=== PATIENT | male | born 1950 | race African-American/Black ===

== ENCOUNTER 2020-04-11 10:12 | Inpatient (IN) ==
--- NOTE | 2020-04-11 10:48 | Emergency Department Note ---
History of Present Illness General Chief complaint: Respiratory Problems Time Seen by Provider: 04/11/20 10:24 Source: patient History of Present Illness Provider complaint: Shortness of breath Onset (ago): week(s) Location: chest Severity: severe Pain Consistency: + constant Quality: + other (Short of breath) Relieved By: + other (Oxygen) Associated symptoms: + fever/chills, + malaise and + shortness of breath; no chest pain, no cough and no nausea/vomiting This is a 70-year-old male with a history of COPD brought in from a local intermediate for evaluation of shortness of breath. The patient was diagnosed with COVID-19 a week ago. He does state that he has had loss of taste and smell as well as intermittent fevers. He denies significant cough. He states he has been short of breath for several weeks but today the intermediate noticed that his O2 saturation was in the 70s on room air. He denies any chest pain or upper back pain. He has had swelling to his legs which she states is chronic and has had this for months. He denies any pain to his legs. He denies abdominal pain, vomiting or diarrhea. His shortness of breath is improved with oxygen. He states he is normally not on oxygen although he uses CPAP at night. He uses inhalers for COPD but has not had any nebulizers. He denies any history of PE or DVT. Home Medications Medication Instructions Recorded Confirmed Type acetaminophen-codeine 2 tab PO TID PRN 04/11/20 04/11/20 History amlodipine 10 mg PO QAM 04/11/20 04/11/20 History atenolol 100 mg PO QAM 04/11/20 04/11/20 History bumetanide 1 mg PO QAM 04/11/20 04/11/20 History cholecalciferol (vitamin D3) 25 mcg PO DAILY 04/11/20 04/11/20 History [Vitamin D3] ciclesonide [Alvesco] 1 puff INHALATION BID 04/11/20 04/11/20 History hydralazine 25 mg PO BID 04/11/20 04/11/20 History irbesartan 300 mg PO QAM 04/11/20 04/11/20 History levalbuterol tartrate [Xopenex HFA] 2 inh INHALATION QID PRN 04/11/20 04/11/20 History meloxicam 7.5 mg PO DAILY PRN 04/11/20 04/11/20 History omeprazole 20 mg PO QAM 04/11/20 04/11/20 History rosuvastatin 20 mg PO HS 04/11/20 04/11/20 History tamsulosin 0.8 mg PO HS 04/11/20 04/11/20 History zinc sulfate 220 mg PO BID 04/11/20 04/11/20 History Allergies Allergy/AdvReac Type Severity Reaction Status Date / Time DARVOCET Allergy Unknown Unknown. Uncoded 04/11/20 11:14 Past Med/Surg History Medical History (Updated 04/11/20 @ 18:34 by Dinesh Laurent MD) Allergic rhinitis Benign essential hypertension BPH (benign prostatic hyperplasia) Cervical disc disorder with radiculopathy CKD (chronic kidney disease), stage III Constipation COPD (chronic obstructive pulmonary disease) Eczema Gastritis Hemorrhoids Hepatitis C Treated with Harvoni Hiatal hernia Liver cirrhosis Lower extremity edema Neuropathy Obstructive sleep apnea Palpitations Peptic ulcer disease Polyosteoarthritis Social History (Updated 04/11/20 @ 10:49 by Brennen Romero MD) Smoking Status: Former smoker Current Living Situation: Other Feels Safe at Home: Yes Review of Systems See HPI for pertinent positives & negatives. and A total of 10 systems reviewed and were otherwise negative Physical Exam Vital Signs Vital Signs - 24 hr 04/11/20 10:27 04/11/20 10:30 04/11/20 10:31 Temperature Source Pulse Rate 71 69 70 Pulse Rate [Left Finger] Pulse Rate from SpO2 Sensor 71 70 70 Respiratory Rate 22 21 23 Respiratory Effort / Characteristics Respiratory Depth Blood Pressure 106/61 121/62 Blood Pressure [Right Arm] Blood Pressure Mean 82 68 Blood Pressure Mean [Right Arm] Blood Pressure Position Pulse Oximetry Oxygen Delivery Method Oxygen Flow Rate Fraction of Inspired Oxygen Sepsis Recent Fever Within 48 Hours Sepsis New/Unexplained Change in Mental Status Sepsis Action Taken by Nursing Oxygen Flow Rate - Titration Pulse Oximetry Post Tiitration 04/11/20 10:41 04/11/20 10:42 04/11/20 10:55 Temperature Source Oral Pulse Rate 66 Pulse Rate [Left Finger] 64 Pulse Rate from SpO2 Sensor Respiratory Rate 18 18 Respiratory Effort / Characteristics Non-Labored Non-Labored Spontaneous Respiratory Depth Normal Blood Pressure 121/62 Blood Pressure [Right Arm] Blood Pressure Mean 81 Blood Pressure Mean [Right Arm] Blood Pressure Position Sitting Pulse Oximetry 88 L 96 Oxygen Delivery Method Nasal Cannula Nasal Cannula High Flow Nasal Cannula Oxygen Flow Rate 4 0 25 Fraction of Inspired Oxygen 50 Sepsis Recent Fever Within 48 Hours No Sepsis New/Unexplained Change in Mental Status No Sepsis Action Taken by Nursing No Action Required Oxygen Flow Rate - Titration 4 Pulse Oximetry Post Tiitration 96 04/11/20 11:00 04/11/20 11:01 04/11/20 11:30 Temperature Source Pulse Rate 66 65 66 Pulse Rate [Left Finger] Pulse Rate from SpO2 Sensor 66 65 66 Respiratory Rate 21 18 18 Respiratory Effort / Characteristics Respiratory Depth Blood Pressure 124/62 Blood Pressure [Right Arm] Blood Pressure Mean 70 Blood Pressure Mean [Right Arm] Blood Pressure Position Pulse Oximetry 97 97 91 Oxygen Delivery Method Oxygen Flow Rate Fraction of Inspired Oxygen Sepsis Recent Fever Within 48 Hours Sepsis New/Unexplained Change in Mental Status Sepsis Action Taken by Nursing Oxygen Flow Rate - Titration Pulse Oximetry Post Tiitration 04/11/20 11:41 04/11/20 12:00 04/11/20 12:30 Temperature Source Pulse Rate 67 68 65 Pulse Rate [Left Finger] Pulse Rate from SpO2 Sensor 67 69 65 Respiratory Rate 20 26 H 15 Respiratory Effort / Characteristics Respiratory Depth Blood Pressure 126/75 Blood Pressure [Right Arm] Blood Pressure Mean 96 Blood Pressure Mean [Right Arm] Blood Pressure Position Pulse Oximetry 93 92 88 L Oxygen Delivery Method Oxygen Flow Rate Fraction of Inspired Oxygen Sepsis Recent Fever Within 48 Hours Sepsis New/Unexplained Change in Mental Status Sepsis Action Taken by Nursing Oxygen Flow Rate - Titration Pulse Oximetry Post Tiitration 04/11/20 13:00 04/11/20 13:01 04/11/20 13:30 Temperature Source Pulse Rate 64 64 65 Pulse Rate [Left Finger] Pulse Rate from SpO2 Sensor 63 64 Respiratory Rate 11 L 13 15 Respiratory Effort / Characteristics Respiratory Depth Blood Pressure 103/54 L Blood Pressure [Right Arm] Blood Pressure Mean 65 Blood Pressure Mean [Right Arm] Blood Pressure Position Pulse Oximetry 94 93 Oxygen Delivery Method Oxygen Flow Rate Fraction of Inspired Oxygen Sepsis Recent Fever Within 48 Hours Sepsis New/Unexplained Change in Mental Status Sepsis Action Taken by Nursing Oxygen Flow Rate - Titration Pulse Oximetry Post Tiitration 04/11/20 13:31 04/11/20 14:00 04/11/20 14:01 Temperature Source Pulse Rate 68 68 65 Pulse Rate [Left Finger] Pulse Rate from SpO2 Sensor 67 68 65 Respiratory Rate 12 19 20 Respiratory Effort / Characteristics Respiratory Depth Blood Pressure 109/41 L 120/56 L Blood Pressure [Right Arm] Blood Pressure Mean 73 95 Blood Pressure Mean [Right Arm] Blood Pressure Position Pulse Oximetry 94 92 91 Oxygen Delivery Method Oxygen Flow Rate Fraction of Inspired Oxygen Sepsis Recent Fever Within 48 Hours Sepsis New/Unexplained Change in Mental Status Sepsis Action Taken by Nursing Oxygen Flow Rate - Titration Pulse Oximetry Post Tiitration 04/11/20 14:05 04/11/20 15:43 Temperature Source Pulse Rate Pulse Rate [Left Finger] 64 68 Pulse Rate from SpO2 Sensor Respiratory Rate 18 18 Respiratory Effort / Characteristics Non-Labored Spontaneous Respiratory Depth Blood Pressure Blood Pressure [Right Arm] 145/85 H Blood Pressure Mean Blood Pressure Mean [Right Arm] 105 Blood Pressure Position Pulse Oximetry 94 94 Oxygen Delivery Method High Flow Nasal Cannula High Flow Nasal Cannula Oxygen Flow Rate 25 Fraction of Inspired Oxygen 40 Sepsis Recent Fever Within 48 Hours Sepsis New/Unexplained Change in Mental Status Sepsis Action Taken by Nursing Oxygen Flow Rate - Titration Pulse Oximetry Post Tiitration Constitutional: Vital signs reviewed. Eyes: Pupils are equal round reactive to light. Conjunctiva are noninjected. ENT: Pharynx is clear without erythema or exudate. Mucous membranes are moist. Neck supple without meningeal signs. Respiratory: Minimal scattered wheezing but otherwise clear to auscultation bilaterally. Breath sounds are equal bilaterally. Cardiovascular: Regular rate and rhythm. No rubs or gallops. GI: Soft, nondistended and nontender. Bowel sounds are present. Musculoskeletal: No significant edema noted in the lower extremities. No lower extremity tenderness. Integumentary: No cyanosis. or jaundice. Neurological: The patient is awake and alert. No focal deficits. Psychiatric: Normal affect. Not anxious appearing. Course Administered Medications Discontinued Medications Dexamethasone (Dexamethasone Sod Inj 10 Mg/Ml Vial) 8 mg IV NOW ONE Stop: 04/11/20 12:49 Last Admin: 04/11/20 12:55 Dose: 8 mg Documented by: [id number] Ioversol (Optiray 320 125ml) 118 ml IV ONCE ONE Stop: 04/11/20 12:30 Last Admin: 04/11/20 12:29 Dose: 1 ml Documented by: [id number] Critical Care Time Critical Care Time: Yes Total Critical Care Time: 35 I have personally spent approximately 35 minutes of critical care time in the direct management of this patient. This includes bedside care, interpretation of diagnostic studies, and testing, discussion with consultants, patient, and family members, and other required patient management activities. These minutes are in excess of all separately billable procedures. Medical Decision Making Differential Diagnosis COPD exacerbation, COVID-19, pneumonia, pleural effusion, pulmonary embolism, DVT Medical Records Attestation: I reviewed the patient's medical records. I did perform a limited focused review of portions of the patient's old chart on the electronic medical record. The patient has had no recent pertinent visits to this hospital. Home Medications Current Medication List: was personally reviewed by me Laboratory Data Attestation: I reviewed the patient's lab results. Result diagrams: 04/11/20 13:13 04/11/20 11:43 Lab Results 04/11/20 04/11/20 04/11/20 Range/Units 11:43 11:43 11:43 WBC (4.8-10.8) K/uL RBC (4.7-6.1) M/uL Hgb (14.0-18.0) g/dL Hct (42-52) % MCV (80-100) fL MCH (25-34) pg MCHC (32-36) g/dL RDW Std Deviation (36.4-46.3) fL RDW Coeff of Hardy (11.5-14.5) % Plt Count (130-400) K/uL MPV (7.4-10.4) fL Immature Gran % (Auto) % Neut % (Auto) % Lymph % (Auto) % [place] % (Auto) % Eos % (Auto) % Baso % (Auto) % Neut # (Auto) (1.4-6.5) K/uL Lymph # (Auto) (1.2-3.4) K/uL [place] # (Auto) (0.11-0.59) K/uL Eos # (Auto) (0-0.5) K/uL Baso # (Auto) (0-0.2) K/uL Immature Gran # (Auto) (0.00-0.02) K/uL Platelet Estimate Decreased L (Normal) PT Cancelled INR Cancelled APTT Cancelled PTT Ratio Cancelled D-Dimer Cancelled ABG pH ABG pCO2 ABG pO2 ABG HCO3 ABG O2 Saturation ABG Base Excess Mc Test Barometric Pressure Oxygen Given Sodium 142 (136-145) mmol/L Potassium 4.7 (3.5-5.1) mmol/L Chloride 111 H (98-107) mmol/L Carbon Dioxide 25 (21-32) mmol/L Anion Gap 6.0 (3-11) BUN 22 H (7-18) mg/dl Creatinine 1.85 H (0.6-1.4) mg/dl Est Cr Clr Drug Dosing Not Reportable Est GFR ( Amer) 41.8 Est GFR (Non-Af Amer) 36.1 BUN/Creatinine Ratio 11.7 (10-20) Glucose 103 H (70-99) mg/dl Calcium 8.5 (8.5-10.1) mg/dl Total Bilirubin 0.5 (0.2-1) mg/dl AST 26 (15-37) U/L ALT 9 L (12-78) U/L Alkaline Phosphatase 62 (45-117) U/L Troponin I 0.035 (0-0.045) ng/ml Total Protein 6.9 (6.4-8.2) gm/dl Albumin 3.4 (3.4-5.0) gm/dl Globulin 3.5 (2.5-4.0) gm/dl Albumin/Globulin Ratio 1.0 (0.9-2) 04/11/20 04/11/20 04/11/20 Range/Units 11:43 13:13 13:13 WBC 2.28 L (4.8-10.8) K/uL RBC 3.27 L (4.7-6.1) M/uL Hgb 10.0 L (14.0-18.0) g/dL Hct 31.2 L (42-52) % MCV 95.4 (80-100) fL MCH 30.6 (25-34) pg MCHC 32.1 (32-36) g/dL RDW Std Deviation 43.8 (36.4-46.3) fL RDW Coeff of Hardy 12.5 (11.5-14.5) % Plt Count 150 (130-400) K/uL MPV 10.2 (7.4-10.4) fL Immature Gran % (Auto) 0.0 % Neut % (Auto) 67.6 % Lymph % (Auto) 20.2 % [place] % (Auto) 11.4 % Eos % (Auto) 0.4 % Baso % (Auto) 0.4 % Neut # (Auto) 1.54 (1.4-6.5) K/uL Lymph # (Auto) 0.46 L (1.2-3.4) K/uL [place] # (Auto) 0.26 (0.11-0.59) K/uL Eos # (Auto) 0.01 (0-0.5) K/uL Baso # (Auto) 0.01 (0-0.2) K/uL Immature Gran # (Auto) 0.00 (0.00-0.02) K/uL Platelet Estimate (Normal) PT 10.9 INR 1.0 APTT 31.6 H PTT Ratio 1.1 D-Dimer 770 H* ABG pH Cancelled ABG pCO2 Cancelled ABG pO2 Cancelled ABG HCO3 Cancelled ABG O2 Saturation Cancelled ABG Base Excess Cancelled Mc Test Cancelled Barometric Pressure Cancelled Oxygen Given Cancelled Sodium (136-145) mmol/L Potassium (3.5-5.1) mmol/L Chloride (98-107) mmol/L Carbon Dioxide (21-32) mmol/L Anion Gap (3-11) BUN (7-18) mg/dl Creatinine (0.6-1.4) mg/dl Est Cr Clr Drug Dosing Est GFR ( Amer) Est GFR (Non-Af Amer) BUN/Creatinine Ratio (10-20) Glucose (70-99) mg/dl Calcium (8.5-10.1) mg/dl Total Bilirubin (0.2-1) mg/dl AST (15-37) U/L ALT (12-78) U/L Alkaline Phosphatase (45-117) U/L Troponin I (0-0.045) ng/ml Total Protein (6.4-8.2) gm/dl Albumin (3.4-5.0) gm/dl Globulin (2.5-4.0) gm/dl Albumin/Globulin Ratio (0.9-2) Imaging Data Radiologist's Impression: XR chest 1V portable CLINICAL HISTORY: Dyspnea COMPARISON STUDY: 10/13/2012 FINDINGS: The heart is normal in size. There is no failure. Since the prior study, the patient has developed bibasilar airspace opacity suspicious for a multifocal pneumonia. Clinical and radiographic follow-up is recommended. There are no significant pleural effusions.[ IMPRESSION: Interval development of multifocal airspace opacities suspicious for a multifocal pneumonia. Correlation with Covid 19 testing is recommended. ACT 112: Negative or not required by law. Electronically signed by: Dell Spencer M.D. 04/11/2020 11:04 AM Dictated: 04/11/20 1103 Transcribed: 04/11/[address] ANGIOGRAM OF THE CHEST CLINICAL HISTORY: Hypoxemia. Covid positive patient. Possible pulmonary embolism. COMPARISON STUDY: Chest x-ray performed the same day TECHNIQUE: Following the IV administration of 118 mL of Optiray-320, CT angiogram of the thorax was performed from the thoracic inlet to the lung bases utilizing the pulmonary embolus protocol. Images are reviewed in the axial, sagittal, and coronal planes. IV contrast was administered without complication. MIP imaging was performed. A dose lowering technique was utilized adhering to the principles of ALARA. CT DOSE: 549.20 mGycm FINDINGS: There are mildly enlarged mediastinal and hilar lymph nodes, likely reactive. There was no evidence of thoracic aortic dilatation. There were no pulmonary artery filling defects to indicate acute pulmonary embolism. No pleural effusions are visualized. There are multifocal airspace opacities consistent with a multifocal pneumonia. Findings are consistent with although not specific for Covid 19 pneumonia. IMPRESSION: 1. No evidence of acute pulmonary embolism 2. Multifocal airspace opacities consistent with a multifocal pneumonia 3. Mild adenopathy, likely reactive. ACT 112: Negative or not required by law. Electronically signed by: Dell Spencer M.D. 04/11/2020 1:10 PM Dictated: 04/11/20 1308 Transcribed: 04/11/20 1308 ECG Data Attestation: I personally reviewed and interpreted this ECG as follows: Indication: + SOB/dyspnea Rate (beats per minute): 67 Rhythm: + normal sinus ECG [place]: + Right axis deviation ECG ST segments: no ST elevation ECG Findings: + Other (T wave flattening in the limb leads); no PVCs Comparison ECG Date: from (October 13, 2012) Change: the following changes noted (T wave flattening is new) MDM Narrative I did evaluate the patient as noted above. The patient was placed in respir atory isolation. He was placed on high flow oxygen via nasal cannula due to hypoxemia. IV access was established. I did treat her with Decadron 8 [address] I did place an order for continuous cardiac monitoring. The monitor showed normal sinus rhythm at a rate of 67 bpm. I did order and personally review the patient's 12-lead EKG as described above. He has some flattening of the T waves but no evidence of ST elevation. I did order and personally reviewed the images of the patient's chest x-ray as described above. He appears to have a multifocal pneumonia consistent with his diagnosis of COVID-19. I did order and review the patient's blood work as noted in the electronic medical record. I did order CT angiogram of the chest. I did review the images myself as well as the radiology report as described above. He is leukopenic with anemia. His hemoglobin is 10. Platelet count is within normal limits although it was initially thought to be decreased. D-dimer is elevated at 770. Troponin is negative. Creatinine is 1.85. He has a normal potassium. I did discuss the test results with the patient. He does state that they have been following his kidney function as it has been elevated in the past. Given his hypoxemia and diagnosis of COVID-[address] scanning of the chest to rule out PE. I did discuss the risks and benefits including potential kidney damage. He was agreeable to the CT scan. I did order a CT angiogram of the chest. I did review the images myself as well as the radiology report as described above. There is no evidence of PE. He does have multifocal pneumonia. I did discuss the case with Dr. Mills. He requests that I start the patient on heparin and the area without an IV bolus. I did go ahead and order a IV heparin drip without a bolus. The patient was admitted to the hospital. I did discuss the test results with him as well as the risks of IV heparin. Impression & Plan Hypoxemia, Pneumonia due to 2019 novel coronavirus, Leukopenia, Anemia, Elevated serum creatinine Discharge Plan Visit Data Chief Complaint: Respiratory Problems ED Provider: Brennen Romero Discharge Problem: Hypoxemia, Pneumonia due to 2019 novel coronavirus, Leukopenia, Anemia, Elevated serum creatinine Forms Stand Alone Forms: My [facility] Prescriptions Prescriptions: No Action hydralazine 25 mg Tablet 25 mg PO BID RF: 0 acetaminophen-codeine 300-30 mg Tablet 2 tab PO TID PRN (Reason: Pain) RF: 0 meloxicam 7.5 mg Tablet 7.5 mg PO DAILY PRN (Reason: Inflammation) RF: 0 zinc sulfate 220 mg Tablet 220 mg PO BID RF: 0 tamsulosin 0.4 mg Capsule 0.8 mg PO HS RF: 0 amlodipine 10 mg Tablet 10 mg PO QAM RF: 0 omeprazole 20 mg Capsule,Delayed Release(Dr/Ec) 20 mg PO QAM RF: 0 bumetanide 1 mg Tablet 1 mg PO QAM RF: 0 atenolol 50 mg Tablet 100 mg PO QAM RF: 0 irbesartan 300 mg Tablet 300 mg PO QAM RF: 0 cholecalciferol (vitamin D3) [Vitamin D3] 25 mcg (1,000 unit) Capsule 25 mcg PO DAILY RF: 0 rosuvastatin 20 mg Tablet 20 mg PO HS RF: 0 levalbuterol tartrate [Xopenex HFA] 45 mcg/actuation Hfa Aerosol Inhaler 2 inh INHALATION QID PRN (Reason: Shortness Of Breath) RF: 0 Alvesco 160 mcg/actuation Hfa Aerosol Inhaler 1 puff INHALATION BID RF: 0
--- NOTE | 2020-04-11 11:05 | XRay Report ---
XR chest 1V portable CLINICAL HISTORY: Dyspnea COMPARISON STUDY: 10/13/2012 FINDINGS: The heart is normal in size. There is no failure. Since the prior study, the patient has de veloped bibasilar airspace opacity suspicious for a multifocal pneumonia. Clinical and radiographic f ollow-up is recommended. There are no significant pleural effusions.[ IMPRESSION: Interval development of multifocal airspace opacities suspicious for a multifocal pneumon ia. Correlation with Covid 19 testing is recommended. ACT 112: Negative or not required by law. Electronically signed by: Dell Spencer M.D. 04/11/2020 11:04 AM
[2020-04-11 12:17] LABS: Alanine Aminotransferase 9 U/L (12-78); Albumin Level 3.4 gm/dl (3.4-5.0); Aspartate Aminotransferase 26 U/L (15-37); BUN Creatinine Ratio 11.7 (10-20); Blood Urea Nitrogen 22 mg/dl (7-18); Calcium 8.5 mg/dl (8.5-10.1); Carbon Dioxide 25 mmol/L (21-32); Chloride 111 mmol/L (98-107); Est GFR (African American) 41.8; Est GFR (Non-African American) 36.1; Glucose 103 mg/dl (70-99); Potassium 4.7 mmol/L (3.5-5.1); Sodium 142 mmol/L (136-145)
[2020-04-11 12:21] LABS: Alkaline Phosphatase 62 U/L (45-117); Bilirubin,Total 0.5 mg/dl (0.2-1); Globulin 3.5 gm/dl (2.5-4.0); Total Protein 6.9 gm/dl (6.4-8.2); Troponin I 0.035 ng/ml (0-0.045)
[2020-04-11] MEDS ORDERED: OPTIRAY 320 125ml IV ONE (12:29)
[2020-04-11] MEDS ORDERED: DEXAMETHASONE SOD INJ 10 MG/ML VIAL IV ONE (12:48)
[2020-04-11 12:59] LABS: Platelet Estimate Decreased (Normal)
--- NOTE | 2020-04-11 13:12 | CT Scan Report ---
CT ANGIOGRAM OF THE CHEST CLINICAL HISTORY: Hypoxemia. Covid positive patient. Possible pulmonary embolism. COMPARISON STUDY: Chest x-ray performed the same day TECHNIQUE: Following the IV administration of 118 mL of Optiray-320, CT angiogram of the thorax was p erformed from the thoracic inlet to the lung bases utilizing the pulmonary embolus protocol. Images a re reviewed in the axial, sagittal, and coronal planes. IV contrast was administered without complica tion. MIP imaging was performed. A dose lowering technique was utilized adhering to the principles o f ALARA. CT DOSE: 549.20 mGycm FINDINGS: There are mildly enlarged mediastinal and hilar lymph nodes, likely reactive. There was no evidence of thoracic aortic dilatation. There were no pulmonary artery filling defects to indicate acute pulmonary embolism. No pleural effusions are visualized. There are multifocal airspace opacities consistent with a multifocal pneumonia. Findings are consiste nt with although not specific for Covid 19 pneumonia. IMPRESSION: 1. No evidence of acute pulmonary embolism 2. Multifocal airspace opacities consistent with a multifocal pneumonia 3. Mild adenopathy, likely reactive. ACT 112: Negative or not required by law. Electronically signed by: Dell Spencer M.D. 04/11/2020 1:10 PM
[2020-04-11 13:22] LABS: Basophils # (auto) 0.01 K/uL (0-0.2); Basophils % (auto) 0.4 %; Eosinophils # (auto) 0.01 K/uL (0-0.5); Eosinophils % (auto) 0.4 %; Hematocrit (blood only) 31.2 % (42-52); Lymphocytes # (auto) 0.46 K/uL (1.2-3.4); Lymphocytes % (auto) 20.2 %; Mean Corpuscular Hemoglobin 30.6 pg (25-34); Mean Corpuscular Hgb Conc 32.1 g/dL (32-36); Mean Corpuscular Volume 95.4 fL (80-100); Mean Platelet Volume 10.2 fL (7.4-10.4); Monocytes # (auto) 0.26 K/uL (0.11-0.59); Monocytes % (auto) 11.4 %; Neutrophils # (auto) 1.54 K/uL (1.4-6.5); Neutrophils % (auto) 67.6 %; Platelet Count 150 K/uL (130-400); RDW Coefficient of Variation 12.5 % (11.5-14.5); RDW Standard Deviation 43.8 fL (36.4-46.3); Red Blood Count 3.27 M/uL (4.7-6.1); White Blood Count 2.28 K/uL (4.8-10.8)
[2020-04-11 13:34] LABS: Partial Thromboplastin Ratio 1.1; Partial Thromboplastin Time 31.6 Seconds (21.0-31.0); Prothrombin Time 10.9 Seconds (9.0-12.0)
[2020-04-11 13:38] LABS: D Dimer 770 ug/L FEU (0-500)
[2020-04-11] MEDS ORDERED: Heparin IV Low Dose *NO* Bolus IV ONE (16:05)
[2020-04-11] MEDS ORDERED: ACETAMINOPHEN W/CODEINE #3 1 TAB PO ONE (16:06)
[2020-04-11] MEDS ORDERED: HEPARIN SODIUM/DEXTROSE 25,000 UNITS/500 ML BAG IV SCH (16:15)
--- NOTE | 2020-04-11 17:22 | History & Physical Report ---
Date of Service April 11, 2020 Assessment & Plan (1) Pneumonia due to COVID-19 virus: Continue dexamethasone 6 mg IV daily Remdesivir IV 5 day course. Discussed convalescent plasma benefits vs. risks and declined this currently given day 7 of illness. (2) Acute respiratory failure with hypoxia: Secondary to COVID-19 pneumonia, procalcitonin with a.m. labs CT for PE negative Monitor I&Os, aim slightly negative balance Aim O2 sats > 90%, Currently maintaining on high flow O2 @ FiO2 40%. (3) COPD (chronic obstructive pulmonary disease): Unclear diagnosis of this is no PFTs available. On no LAMA as an outpatient. No acute exacerbation on auscultation or increased sputum production. (4) Obstructive sleep apnea: CPAP HS 8 cmH2O (5) Benign essential hypertension: Continue atenolol 100 mg p.o. every morning, irbesartan 300 mg p.o. every morning Low normal BP on admission in setting of COVID-19 pneumonia - Hold bumex as patient not taking this for the last week. Hold amlodipine and hydralazine - restart if BP increases. (6) BPH (benign prostatic hyperplasia): Continue tamsulosin 0.8 mg p.o. at bedtime (7) Polyosteoarthritis: Hold NSAIDs due to elevated Cr and unclear if stable. (8) Cervical disc disorder with radiculopathy: Chronic issue. Potentially being worked up for spinal surgery per patient. Due to current renal function will switch codeine (Tyelenol 3 for oxycodone 5mg Q4H PRN (9) Lower extremity edema: ?venous stasis vs. cirrhosis vs. heart failure. Currently improved per patient. Will hold off bumex currently and monitor I&Os closely to aim for slightly negative balance. (10) Peptic ulcer disease: Switch omeprazole for pantoprazole as per hospital formulary (11) Liver cirrhosis: Suspected secondary to treated hepatitis C. Unclear if biopsy diagnosis made or whether follows gastroenterology. Continue atenolol 100 mg p.o. every morning (12) CKD (chronic kidney disease), stage III: Monitor renal function daily. Hold NSAIDs and codeine. (13) DVT prophylaxis: Hepatin 7500 units Q8H (increased dose due to COVID-19 diagnosis Admission and Anticipated Discharge Date Admission Date: 04/11/2020 History of Present Illness Chief Complaint: Shortness of breath, hypoxia Primary Care Provider: [facility] Blue Virk is a 70-year-old male from [facility] with COPD and JASMINA who presents to the ER for increased need of oxygen in the setting of COVID-19 pneumonia. He reports having increasing shortness of breath over the last month. He was diagnosed with COVID-19 with nasopharyngeal swab on 04/04 (7 days previously) as a routine test prior to a doctors visit. However he only started having specific COVID-19 symptoms the following day with loss of taste and smell, fever, chills, myalgias, loss of appetite and increasing fatigue. He denies any abdominal pain or diarrhea. He reports most of his symptoms have improved however has been getting increasingly shortness of breath over the last week especially on exertion. Due to increased oxygen requirement today he was sent over by the care home (70s on room air). He denies any chest pain, palpitations, leg swelling improved since stopping bumex. He reports taking all his regular medication this morning although on direct questioning he does note stopping the Bumex approximately a week ago as he felt this was making his leg swelling worse. He has diagnosed COPD with a 40-pack year smoking history but reports not feeling significant improvement with inhalers with his current illness. No history of CT, CVA, PE or DVT. In the ER CXR concerning for multifocal airspace opacities suspicious for multifocal pneumonia. O2 sats improved to 94% on FiO2 40%. Creatinine concerning at 1.85 however baseline reported over the phone from [facility] 1.51 [03/06/20] - 1.87 [12/06/19]. He was treated with dexamethasone 8mg IV for COVID- 19 pneumonia and referred to medicine for admission and ongoing management of COVID-19 pneumonia. Allergies Allergy/AdvReac Type Severity Reaction Status Date / Time DARVOCET Allergy Unknown Unknown. Uncoded 04/11/20 11:14 Home Medications Medication Instructions Recorded Confirmed Type acetaminophen-codeine 2 tab PO TID PRN 04/11/20 04/11/20 History amlodipine 10 mg PO QAM 04/11/20 04/11/20 History atenolol 100 mg PO QAM 04/11/20 04/11/20 History bumetanide 1 mg PO QAM 04/11/20 04/11/20 History cholecalciferol (vitamin D3) 25 mcg PO DAILY 04/11/20 04/11/20 History [Vitamin D3] ciclesonide [Alvesco] 1 puff INHALATION BID 04/11/20 04/11/20 History hydralazine 25 mg PO BID 04/11/20 04/11/20 History irbesartan 300 mg PO QAM 04/11/20 04/11/20 History levalbuterol tartrate [Xopenex HFA] 2 inh INHALATION QID PRN 04/11/20 04/11/20 History meloxicam 7.5 mg PO DAILY PRN 04/11/20 04/11/20 History omeprazole 20 mg PO QAM 04/11/20 04/11/20 History rosuvastatin 20 mg PO HS 04/11/20 04/11/20 History tamsulosin 0.8 mg PO HS 04/11/20 04/11/20 History zinc sulfate 220 mg PO BID 04/11/20 04/11/20 History Past Med/Surg History Medical History (Updated 04/11/20 @ 18:41 by Dinesh Laurent MD) Allergic rhinitis Benign essential hypertension BPH (benign prostatic hyperplasia) Cervical disc disorder with radiculopathy CKD (chronic kidney disease), stage III Constipation COPD (chronic obstructive pulmonary disease) Eczema Gastritis Hemorrhoids Hepatitis C Treated with Harvoni Hiatal hernia Liver cirrhosis Lower extremity edema Neuropathy Obstructive sleep apnea Palpitations Peptic ulcer disease Polyosteoarthritis Social History (Updated 04/11/20 @ 10:49 by Brennen Romero MD) Smoking Status: Former smoker Current Living Situation: Other Feels Safe at Home: Yes Review of Systems Review of Systems: All systems reviewed & are unremarkable except as noted in HPI & below Cardiovascular: Additional Comments: Intermittent leg swelling starting approximately 3 weeks ago which improved after stopping his Bumex approximately a week ago. Musculoskeletal: + neck pain and + radicular pain (Down both arms, chronic) Physical Exam Constitutional: well developed, well nourished and + acute distress (respiratory) Eyes: + anicteric sclerae; normal pupil size ENMT: external ear and nose normal, oropharynx normal Neck: trachea midline, no thyromegaly Respiratory: normal respiratory effort Auscultation: + diminished lung sounds (bibasal); no crackles, no rales, no rhonchi and no wheezes Cardiovascular: Rate/Rhythm: regular rate and regular rhythm Heart Sounds: no murmur Vessels: no JVD Extremities: normal capillary refill and + pedal edema (trace b/l equal to mid shins); no calf tenderness Gastrointestinal (Abdomen): normal bowel sounds, soft, nontender, no hepatosplenomegaly Inspection/Auscultation: + abdomen distended Musculoskeletal: no cyanosis or clubbing, extremities motor strength 5/5 Skin: no rashes, warm and dry Neurologic: awake; no focal motor deficits and not confused Speech / Cognition: normal speech Motor/Sensory: no tremor Psychiatric: A+Ox3, euthymic affect Results & Data Results & Data ([facility]) Vital Signs (Past 12 Hours) Vital Signs Pulse Pulse Resp BP BP Pulse Ox 04/11/20 15:43 68 18 145/85 H 94 04/11/20 14:05 64 18 94 04/11/20 14:01 65 20 120/56 L 91 04/11/20 14:00 68 19 92 04/11/20 13:31 68 12 109/41 L 94 04/11/20 13:30 65 15 04/11/20 13:01 64 13 103/54 L 93 04/11/20 13:00 64 11 L 94 04/11/20 12:30 65 15 88 L 04/11/20 12:00 68 26 H 92 04/11/20 11:41 67 20 126/75 93 04/11/20 11:30 66 18 91 04/11/20 11:01 65 18 97 04/11/20 11:00 66 21 124/62 97 04/11/20 10:55 64 18 96 04/11/20 10:42 66 18 121/62 88 L 04/11/20 10:31 70 23 04/11/20 10:30 69 21 121/62 04/11/20 10:27 71 22 106/61 Diagnostic Findings XR chest 1V portable IMPRESSION: Interval development of multifocal airspace opacities suspicious for a multifocal pneumonia. Correlation with Covid [address] ANGIOGRAM OF THE CHEST IMPRESSION: 1. No evidence of acute pulmonary embolism 2. Multifocal airspace opacities consistent with a multifocal pneumonia 3. Mild adenopathy, likely reactive. Medications Administered ER medications given: Code Status & VTE Plan Code Status Full VTE Prophylaxis Plan VTE Prophylaxis will be ordered: Yes PG Care Time/CCT Total # of Minutes Spent Total Time Spent with Patient: Total time spent is greater than 50% in coordination of care (as documented) at patient's floor/unit and/or counseling patient: Coding Level of Care Code 44025 Initial Inpt Care Lvl 3 Diagnoses Pneumonia due to COVID-19 virus U07.1; J12.89 Acute respiratory failure with hypoxia J96.01 COPD (chronic obstructive pulmonary disease) J44.9 Obstructive sleep apnea G47.33 Benign essential hypertension I10 BPH (benign prostatic hyperplasia) N40.0 Polyosteoarthritis M15.9 Cervical disc disorder with radiculopathy M50.10 Lower extremity edema R60.0 Peptic ulcer disease K27.9 Liver cirrhosis K74.60 CKD (chronic kidney disease), stage III N18.30 DVT prophylaxis Z29.9
[2020-04-11] MEDS ORDERED: oxyCODONE HCL IR 5 MG TAB (IMMEDIATE RELEASE) PO STA (17:43)
[2020-04-11] MEDS ORDERED: SODIUM CHLORIDE 0.9% 10ML FLUSH IV ONE (18:30)
[2020-04-11] MEDS ORDERED: REMDESIVIR 200 MG in SODIUM CHLORIDE 0.9% 210 ML IV ONE (18:30)
[2020-04-11] MEDS ORDERED: ONDANSETRON INJ 2 MG/ML 2 ML VIAL IV PRN (20:52)
[2020-04-11] MEDS ORDERED: LEVALBUTEROL TARTRATE 15 GM HFA.AER.AD INH PRN (20:52)
[2020-04-11] MEDS ORDERED: ACETAMINOPHEN 325 MG TAB PO PRN (20:52)
[2020-04-11] MEDS ORDERED: POLYETHYLENE (MIRALAX) 17 GM PACK PO PRN (20:52)
[2020-04-11] MEDS ORDERED: BUDESONIDE/FORMOTEROL FUMARATE 160/4.5 60 PUFFS/INHALER INH SCH (21:00)
[2020-04-11] MEDS: TAMSULOSIN HCL 0.4 MG CAP PO SCH (21:38)
[2020-04-11] MEDS: ACETAMINOPHEN 500 MG TAB PO SCH (21:38)
[2020-04-11] MEDS: ROSUVASTATIN CALCIUM 20 MG TAB PO SCH (21:38)
[2020-04-11] MEDS: HEPARIN SOD 5,000 UNIT/0.5 ML VIAL SQ SCH (21:39)
[2020-04-11] MEDS: oxyCODONE HCL IR 5 MG TAB (IMMEDIATE RELEASE) PO PRN (23:29)
[2020-04-12] MEDS: HEPARIN SOD 5,000 UNIT/0.5 ML VIAL SQ SCH ×3 (05:06→21:25)
[2020-04-12] MEDS: oxyCODONE HCL IR 5 MG TAB (IMMEDIATE RELEASE) PO PRN ×4 (05:24→22:32)
[2020-04-12 06:05] LABS: Appearance Urine Clear (Clear); Bacteria Urine Automated Negative (Negative); Bilirubin Urine Negative (Negative); Blood Urine Negative (Negative); Color Urine Dark Yellow; Glucose Urine UA 1+ (Negative); Ketones Urine Trace (Negative); Leukocyte Esterase Urine Negative (Negative); Nitrite Urine Negative (Negative); Protein Urine 2+ (Negative); RBC Urine Automated 0-4 /hpf (0-4); Specific Gravity Urine 1.043 (1.000-1.030); Urobilinogen Urine Negative (Negative)
[2020-04-12] MEDS: ATENOLOL 50 MG TABLET PO SCH (08:07)
[2020-04-12] MEDS: ACETAMINOPHEN 500 MG TAB PO SCH ×3 (08:07→21:23)
[2020-04-12] MEDS: IRBESARTAN 150 MG TAB PO SCH (08:07)
[2020-04-12] MEDS: DEXAMETHASONE SOD PHOSPHATE 6 MG in SYRINGE 0 ML IV SCH (08:07)
[2020-04-12] MEDS: FLUTICASONE/VILANTEROL 200/25MCG 14 PUFFS/INHALER INH SCH (08:07)
[2020-04-12] MEDS: CHOLECALCIFEROL 1,000 UNITS 25 MCG TAB PO SCH (08:08)
[2020-04-12] MEDS: PANTOprazole 40 MG TAB PO SCH (08:08)
[2020-04-12 08:35] LABS: Basophils # (auto) 0.01 K/uL (0-0.2); Basophils % (auto) 0.4 %; Hematocrit (blood only) 33.5 % (42-52); Lymphocytes # (auto) 0.42 K/uL (1.2-3.4); Lymphocytes % (auto) 17.3 %; Mean Corpuscular Hemoglobin 30.6 pg (25-34); Mean Corpuscular Hgb Conc 32.8 g/dL (32-36); Mean Corpuscular Volume 93.3 fL (80-100); Mean Platelet Volume 10.6 fL (7.4-10.4); Monocytes # (auto) 0.24 K/uL (0.11-0.59); Monocytes % (auto) 9.9 %; Neutrophils # (auto) 1.76 K/uL (1.4-6.5); Neutrophils % (auto) 72.4 %; Platelet Count 177 K/uL (130-400); RDW Coefficient of Variation 12.3 % (11.5-14.5); Red Blood Count 3.59 M/uL (4.7-6.1); White Blood Count 2.43 K/uL (4.8-10.8)
[2020-04-12 08:53] LABS: Albumin Level 3.5 gm/dl (3.4-5.0); BUN Creatinine Ratio 15.9 (10-20); C Reactive Protein 6.85 mg/dl (0-0.29); Calcium 8.7 mg/dl (8.5-10.1); Est GFR (African American) 47.3; Est GFR (Non-African American) 40.8; Potassium 4.9 mmol/L (3.5-5.1)
[2020-04-12 08:56] LABS: Albumin Globulin Ratio 0.8 (0.9-2); Bilirubin,Total 0.5 mg/dl (0.2-1); Globulin 4.4 gm/dl (2.5-4.0); Total Protein 7.9 gm/dl (6.4-8.2)
[2020-04-12] MEDS ORDERED: DEXAMETHASONE SOD INJ 4 MG/ML VIAL IV SCH (09:00)
--- NOTE | 2020-04-12 09:35 | Hospitalist Progress Note ---
Date of Service April 12, 2020 Assessment & Plan (1) Pneumonia due to COVID-19 virus: Continue dexamethasone 6 mg IV daily Remdesivir IV 5 day course. Discussed convalescent plasma benefits vs. risks and declined this currently given day 7 of illness. (2) Acute respiratory failure with hypoxia: Secondary to COVID-19 pneumonia, procalcitonin with a.m. labs CT for PE negative Aim O2 sats > 90%, Currently maintaining on nasal cannula (3) COPD (chronic obstructive pulmonary disease): Unclear diagnosis of this is no PFTs available. On no LAMA as an outpatient. No acute exacerbation on auscultation or increased sputum production. (4) Cervical disc disorder with radiculopathy: Chronic issue. Potentially being worked up for spinal surgery per patient. Due to current renal function will switch codeine (Tyelenol 3 for oxycodone 5mg Q4H PRN added topical lidoderm, excalate dose of oxycodone, adding schedule tylenol next if still painful (5) Obstructive sleep apnea: CPAP HS 8 cmH2O (6) Benign essential hypertension: Continue atenolol 100 mg p.o. every morning, irbesartan 300 mg p.o. every morning Low normal BP on admission in setting of COVID-19 pneumonia - Hold bumex as patient not taking this for the last week. Hold amlodipine and hydralazine - restart if BP increases. (7) BPH (benign prostatic hyperplasia): Continue tamsulosin 0.8 mg p.o. at bedtime (8) Polyosteoarthritis: Hold NSAIDs due to elevated Cr and unclear if stable. (9) Lower extremity edema: ?venous stasis vs. cirrhosis vs. heart failure. Currently improved per patient. Will hold off bumex currently and monitor I&Os closely to aim for slightly negative balance. (10) Peptic ulcer disease: Switch omeprazole for pantoprazole as per hospital formulary (11) Liver cirrhosis: Suspected secondary to treated hepatitis C. Unclear if biopsy diagnosis m dyan or whether follows gastroenterology. Continue atenolol 100 mg p.o. every morning (12) CKD (chronic kidney disease), stage III: Monitor renal function daily. Hold NSAIDs and codeine. (13) DVT prophylaxis: Hepatin 7500 units Q8H (increased dose due to COVID-19 diagnosis Admission and Anticipated Discharge Date Admission Date: April 11, 2020 Subjective This patient is a good resolution of his respiratory distress now being on 2 L nasal cannula he is at one point time was on 25 L. His biggest complaints and problems seem to revolve around his neck discomfort. The patient was being evaluated for possible cervical spine surgery when his Covid diagnosis was first made. He states his surgery was postponed and [facility]. Right now he is having pain very little radicular symptoms Review of Systems Review of Systems: Moderate distress and fatigue no headache, blurry or double vision no speech or swallowing issues no chest pain, pressure or palpitations Persistent shortness of breath, with nonproductive cough no abdominal pain, nausea or vomiting, diarrhea or constipation no dysuria, hematuria or frequency no focal joint pain or swelling Cervical spine pain at the base of his cervical spine around C7 radiating upward to the base of the skull without radiation of pain down his arms at this point time no bruising, bleeding or rashes no focal signs of weakness or numbness or altered sensation patient claims subjective weakness of his arms no complaints of anxiety or depression.. Physical Exam Physical Exam: The patient appeared well nourished and normally developed. In mild to moderate pain during my examination Vital signs as documented. Head exam is normocephalic atraumatic no scleral icterus Neck is without JVD, thyromegaly, or carotid bruits. He has point tenderness to the base of his neck radiating towards the base of the skull Lungs are coarse bilaterally with rales at the base Cardiac exam, Rhythm is regular.. No murmurs, rubs or gallops. 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 and can shrug his shoulders Skin is without bruises or rashes Results & Data Results & Data ([facility]) Vital Signs (Past 12 Hours) Vital Signs Temp Pulse Pulse Pulse Resp BP Pulse Ox 04/12/20 07:38 98.1 F 68 18 144/72 H 93 04/12/20 03:57 60 16 96 04/12/20 03:15 97.7 F 65 22 113/62 96 04/12/20 00:22 66 66 20 94 04/11/20 23:30 97.5 F L 69 20 117/72 95 PG Care Time/CCT Total # of Minutes Spent Total Time Spent with Patient: Total time spent is greater than 50% in coordination of care (as documented) at patient's floor/unit and/or counseling patient: Coding Level of Care Code 50752 Subseq Hosp Care Lvl 3 Diagnoses Pneumonia due to COVID-19 virus U07.1; J12.89 Acute respiratory failure with hypoxia J96.01 COPD (chronic obstructive pulmonary disease) J44.9 Cervical disc disorder with radiculopathy M50.10 Obstructive sleep apnea G47.33 Benign essential hypertension I10 BPH (benign prostatic hyperplasia) N40.0 Polyosteoarthritis M15.9 Lower extremity edema R60.0 Peptic ulcer disease K27.9 Liver cirrhosis K74.60 CKD (chronic kidney disease), stage III N18.30 DVT prophylaxis Z29.9
--- NOTE | 2020-04-12 13:21 | Electrocardiogram Report ---
Test Reason : Blood Pressure : / mmHG Vent. Rate : 067 BPM Atrial Rate : 067 BPM P-R Int : 222 ms QRS Dur : 082 ms QT Int : 380 ms P-R-T Axes : 111 114 118 degrees QTc Int : 401 ms Suspect arm lead reversal, interpretation assumes no reversal Sinus rhythm with 1st degree A-V block Right axis deviation Nonspecific T wave abnormality Abnormal ECG When compared with ECG of 13-OCT-2012 15:42, [place] interval has increased QRS axis Shifted right Nonspecific T wave abnormality, worse in Inferior leads Nonspecific T wave abnormality now evident in Lateral leads Confirmed by Benny Carr ([id number]) on 04/12/2020 1:20:43 PM Referred By: Lilia SCI Confirmed By:Benny Carr
[2020-04-12] MEDS ORDERED: HYDROcodone/ACETAMINOPHEN 10/325 TAB PO PRN (17:26)
[2020-04-12] MEDS: LIDOCAINE 5% 1 PATCH TD SCH (18:42)
[2020-04-12] MEDS ORDERED: SODIUM CHLORIDE 0.9% 10ML FLUSH IV SCH (20:00)
[2020-04-12] MEDS: ROSUVASTATIN CALCIUM 20 MG TAB PO SCH (21:24)
[2020-04-12] MEDS: TAMSULOSIN HCL 0.4 MG CAP PO SCH (21:25)
[2020-04-12] MEDS: SODIUM CHLORIDE 0.9% 10ML FLUSH IV SCH (21:26)
[2020-04-12] MEDS: REMDESIVIR 100 MG in SODIUM CHLORIDE 0.9% 230 ML IV SCH (21:29)
[2020-04-13] MEDS: oxyCODONE HCL IR 5 MG TAB (IMMEDIATE RELEASE) PO PRN ×4 (03:15→19:25)
[2020-04-13] MEDS: HEPARIN SOD 5,000 UNIT/0.5 ML VIAL SQ SCH ×3 (06:23→21:23)
--- NOTE | 2020-04-13 08:02 | Hospitalist Progress Note ---
Date of Service April 13, 2020 Assessment & Plan (1) Pneumonia due to COVID-19 virus: Continue dexamethasone 6 mg IV daily Remdesivir IV 5 day course, this maybe truncated if comes off oxygen Discussed convalescent plasma benefits vs. risks and declined this currently given day 7 of illness. pt with SOB for one month, but does have COPD. first covid test + 04/04/20. he is improving greatly (2) Acute respiratory failure with hypoxia: Secondary to COVID-19 pneumonia, procalcitonin negtive CT for PE negative Aim O2 sats > 90%, Currently maintaining on nasal cannula (3) COPD (chronic obstructive pulmonary disease): Unclear diagnosis of this is no PFTs available. On no LAMA as an outpatient. No acute exacerbation on auscultation or increased sputum production. will maximize treatment at this time (4) Cervical disc disorder with radiculopathy: Chronic issue. Potentially being worked up for spinal surgery per patient. oxycodone 5mg Q4H PRN added topical lidoderm, excalate dose of oxycodone, adding schedule tylenol next if still painful will explore issues with skilled nursing and if able may consider consultation with Dr Forde, will contact skilled nursing doctor and Dr Barnes this week, also will need to coordinate with OR regarding the pts covid status as 10 days from diagnosis will be 04/14 (5) Obstructive sleep apnea: CPAP HS 8 cmH2O at night continues as prehospital setting s (6) Benign essential hypertension: Continue atenolol 100 mg p.o. every morning, irbesartan 300 mg p.o. every morning Low normal BP on admission in setting of COVID-19 pneumonia - Holding bumex as patient not taking this for the last week. Hold amlodipine and hydralazine - restart if BP increases. (7) BPH (benign prostatic hyperplasia): Continue tamsulosin 0.8 mg p.o. at bedtime (8) Polyosteoarthritis: Hold NSAIDs due to elevated Cr and unclear if stable. (9) Lower extremity edema: ?venous stasis vs. cirrhosis vs. heart failure. Currently improved per patient. Will hold off bumex currently and monitor I&Os closely to aim for slightly negative balance. (10) Peptic ulcer disease: Switch omeprazole for pantoprazole as per hospital formulary (11) Liver cirrhosis: Suspected secondary to treated hepatitis C. Unclear if biopsy diagnosis made or whether follows gastroenterology. Continue atenolol 100 mg p.o. every morning (12) CKD (chronic kidney disease), stage III: Monitor renal function daily. Hold NSAIDs and codeine. (13) DVT prophylaxis: Hepatin 7500 units Q8H (increased dose due to COVID-19 diagnosis Admission and Anticipated Discharge Date Admission Date: April 11, 2020 Subjective This patient is a good resolution of his respiratory distress now being on 1 L nasal cannula he is at one point time was on 25 L. His biggest complaints continue to revolve around his neck discomfort. The patient was being evaluated for possible cervical spine surgery when his Covid diagnosis was first made. He states his surgery was postponed and [facility]. he has persistent pain and arm weakness. Review of Systems Review of Systems: Moderate distress and fatigue no headache, blurry or double vision no speech or swallowing issues no chest pain, pressure or palpitations Persistent shortness of breath, with nonproductive cough no abdominal pain, nausea or vomiting, diarrhea or constipation no dysuria, hematuria or frequency no focal joint pain or swelling Cervical spine pain at the base of his cervical spine around C7 radiating upward to the base of the skull without radiation of pain down his arms at this point time no bruising, bleeding or rashes no focal signs of weakness or numbness or altered sensation no complaints of anxiety or depression.. Physical Exam Physical Exam: The patient appeared well nourished and normally developed. In mild to moderate pain during my examination Vital signs as documented. Head exam is normocephalic atraumatic no scleral icterus Neck is without JVD, thyromegaly, or carotid bruits. He has point tenderness to the base of his neck radiating towards the base of the skull Lungs are coarse bilaterally with rales at the base Cardiac exam, Rhythm is regular.. No murmurs, rubs or gallops. 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 Neurologic exam is alert and oriented, Skin is without bruises or rashes Results & Data Results & Data ([facility]) Vital Signs (Past 12 Hours) Vital Signs Temp Pulse Pulse Resp BP Pulse Ox 04/13/20 07:18 97.5 F L 70 18 144/75 H 92 04/13/20 06:45 62 16 92 04/13/20 05:28 67 19 137/70 93 04/13/20 02:18 80 18 95 04/13/20 00:20 80 18 95 04/12/20 23:38 66 19 132/73 92 PG Care Time/CCT Total # of Minutes Spent Total Time Spent with Patient: Total time spent is greater than 50% in coordination of care (as documented) at patient's floor/unit and/or counseling patient: Coding Level of Care Code 49747 Subseq Hosp Care Lvl 3 Diagnoses Pneumonia due to COVID-19 virus U07.1; J12.89 Acute respiratory failure with hypoxia J96.01 COPD (chronic obstructive pulmonary disease) J44.9 Cervical disc disorder with radiculopathy M50.10 Obstructive sleep apnea G47.33 Benign essential hypertension I10 BPH (benign prostatic hyperplasia) N40.0 Polyosteoarthritis M15.9 Lower extremity edema R60.0 Peptic ulcer disease K27.9 Liver cirrhosis K74.60 CKD (chronic kidney disease), stage III N18.30 DVT prophylaxis Z29.9
[2020-04-13] MEDS: DEXAMETHASONE SOD PHOSPHATE 6 MG in SYRINGE 0 ML IV SCH (09:18)
[2020-04-13] MEDS: ACETAMINOPHEN 500 MG TAB PO SCH ×3 (09:18→21:23)
[2020-04-13] MEDS: CHOLECALCIFEROL 1,000 UNITS 25 MCG TAB PO SCH (09:18)
[2020-04-13] MEDS: IRBESARTAN 150 MG TAB PO SCH (09:18)
[2020-04-13] MEDS: ATENOLOL 50 MG TABLET PO SCH (09:18)
[2020-04-13] MEDS: PANTOprazole 40 MG TAB PO SCH (09:18)
[2020-04-13] MEDS: LIDOCAINE 5% 1 PATCH TD SCH (09:19)
[2020-04-13] MEDS: FLUTICASONE/VILANTEROL 200/25MCG 14 PUFFS/INHALER INH SCH (09:19)
[2020-04-13] MEDS: REMDESIVIR 100 MG in SODIUM CHLORIDE 0.9% 230 ML IV SCH (20:16)
[2020-04-13] MEDS: ROSUVASTATIN CALCIUM 20 MG TAB PO SCH (21:22)
[2020-04-13] MEDS: SODIUM CHLORIDE 0.9% 10ML FLUSH IV SCH (21:22)
[2020-04-13] MEDS: TAMSULOSIN HCL 0.4 MG CAP PO SCH (21:22)
[2020-04-14] MEDS: oxyCODONE HCL IR 5 MG TAB (IMMEDIATE RELEASE) PO PRN ×4 (01:51→21:29)
[2020-04-14] MEDS: HEPARIN SOD 5,000 UNIT/0.5 ML VIAL SQ SCH ×3 (06:13→21:23)
[2020-04-14] MEDS: IRBESARTAN 150 MG TAB PO SCH (08:33)
[2020-04-14] MEDS: FLUTICASONE/VILANTEROL 200/25MCG 14 PUFFS/INHALER INH SCH (08:33)
[2020-04-14] MEDS: CHOLECALCIFEROL 1,000 UNITS 25 MCG TAB PO SCH (08:33)
[2020-04-14] MEDS: LIDOCAINE 5% 1 PATCH TD SCH (08:34)
[2020-04-14] MEDS: PANTOprazole 40 MG TAB PO SCH (08:34)
[2020-04-14] MEDS: DEXAMETHASONE SOD PHOSPHATE 6 MG in SYRINGE 0 ML IV SCH (08:34)
[2020-04-14] MEDS: ATENOLOL 50 MG TABLET PO SCH (08:35)
[2020-04-14] MEDS: ACETAMINOPHEN 500 MG TAB PO SCH ×3 (08:46→21:29)
--- NOTE | 2020-04-14 15:49 | Hospitalist Progress Note ---
Date of Service April 14, 2020 Assessment & Plan (1) Pneumonia due to COVID-19 virus: stop dexamethasone and remdesivir as no longer hypoxic pt with SOB for one month, but does have COPD. first covid test + 04/04/20. he is improving greatly, will not move out of airborne until day 11 (2) Acute respiratory failure with hypoxia: Secondary to COVID-19 pneumonia, procalcitonin negtive CT for PE negative with rapid improvement consider onset of covid > 10 days ago or sob and hypoxia were mostly influenced by his copd (3) COPD (chronic obstructive pulmonary disease): Unclear diagnosis of this is no PFTs available. On no LAMA as an outpatient. No acute exacerbation on auscultation or increased sputum production. will maximize treatment at this time (4) Cervical disc disorder with radiculopathy: Chronic issue. Potentially being worked up for spinal surgery per patient. oxycodone 5mg Q4H PRN added topical lidoderm, excalate dose of oxycodone, adding schedule tylenol next if still painful will explore issues with group home and if able may consider consultation with Dr Forde, attempts to contact Dr Moss at [facility] were unsuccessful on 04/13 I did leave call back number, will proceed to MRI c spine at this time covid status as 10 days from diagnosis will be 04/15 (5) Obstructive sleep apnea: CPAP HS 8 cmH2O at night continues as prehospital setting s (6) Benign essential hypertension: Continue atenolol 100 mg p.o. every morning, irbesartan 300 mg p.o. every morning Low normal BP on admission in setting of COVID-19 pneumonia - Holding bumex as patient not taking this for the last week. Hold amlodipine and hydralazine - restart if BP increases. (7) BPH (benign prostatic hyperplasia): Continue tamsulosin 0.8 mg p.o. at bedtime (8) Polyosteoarthritis: Hold NSAIDs due to elevated Cr and unclear if stable. (9) Lower extremity edema: ?venous stasis vs. cirrhosis vs. heart failure. Currently improved per patient. Will hold off bumex currently and monitor I&Os closely to aim for slightly negative balance. (10) Peptic ulcer disease: Switch omeprazole for pantoprazole as per hospital formulary (11) Liver cirrhosis: Suspected secondary to treated hepatitis C. Unclear if biopsy diagnosis made or whether follows gastroenterology. Continue atenolol 100 mg p.o. every morning (12) CKD (chronic kidney disease), stage III: Monitor renal function daily. Hold NSAIDs and codeine. (13) DVT prophylaxis: Hepatin 7500 units Q8H (increased dose due to COVID-19 diagnosis) Admission and Anticipated Discharge Date Admission Date: April 11, 2020 Subjective This patient is a good resolution of his respiratory distress now being on room air and without complaints. His biggest complaints continue to revolve around his neck discomfort. The patient was being evaluated for possible cervical spine surgery when his Covid diagnosis was first made. He states his surgery was postponed and [facility]. he has persistent pain and arm weakness. Review of Systems Review of Systems: Moderate distress and fatigue no headache, blurry or double vision no speech or swallowing issues no chest pain, pressure or palpitations Persistent shortness of breath, with nonproductive cough no abdominal pain, nausea or vomiting, diarrhea or constipation no dysuria, hematuria or frequency no focal joint pain or swelling Cervical spine pain at the base of his cervical spine around C7 radiating upward to the base of the skull without radiation of pain down his arms at this point time no bruising, bleeding or rashes no focal signs of weakness or numbness or altered sensation no complaints of anxiety or depression.. Physical Exam Physical Exam: The patient appeared well nourished and normally developed. In mild to moderate pain during my examination Vital signs as documented. Head exam is normocephalic atraumatic no scleral icterus Neck is without JVD, thyromegaly, or carotid bruits. He has point tenderness to the base of his neck radiating towards the base of the skull Lungs are coarse bilaterally with rales at the base Cardiac exam, Rhythm is regular.. No murmurs, rubs or gallops. 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 Neurologic exam is alert and oriented, Skin is without bruises or rashes Results & Data Results & Data ([facility]) Vital Signs (Past 12 Hours) Vital Signs Temp Pulse Resp BP Pulse Ox 04/14/20 08:50 91 04/14/20 08:37 68 163/83 H 89 L 04/14/20 06:59 98.8 F 58 L 18 152/80 H 91 PG Care Time/CCT Total # of Minutes Spent Total Time Spent with Patient: Total time spent is greater than 50% in coordination of care (as documented) at patient's floor/unit and/or counseling patient: Coding Level of Care Code 09412 Subseq Hosp Care Lvl 3 Diagnoses Pneumonia due to COVID-19 virus U07.1; J12.89 Acute respiratory failure with hypoxia J96.01 COPD (chronic obstructive pulmonary disease) J44.9 Cervical disc disorder with radiculopathy M50.10 Obstructive sleep apnea G47.33 Benign essential hypertension I10 BPH (benign prostatic hyperplasia) N40.0 Polyosteoarthritis M15.9 Lower extremity edema R60.0 Peptic ulcer disease K27.9 Liver cirrhosis K74.60 CKD (chronic kidney disease), stage III N18.30 DVT prophylaxis Z29.9
[2020-04-14] MEDS: ROSUVASTATIN CALCIUM 20 MG TAB PO SCH (21:23)
[2020-04-14] MEDS: TAMSULOSIN HCL 0.4 MG CAP PO SCH (21:23)
[2020-04-15] MEDS: oxyCODONE HCL IR 5 MG TAB (IMMEDIATE RELEASE) PO PRN ×2 (05:25→11:12)
[2020-04-15] MEDS: HEPARIN SOD 5,000 UNIT/0.5 ML VIAL SQ SCH ×2 (06:14→14:10)
[2020-04-15] MEDS: LIDOCAINE 5% 1 PATCH TD SCH (09:17)
[2020-04-15] MEDS: ACETAMINOPHEN 500 MG TAB PO SCH ×2 (09:17→14:29)
[2020-04-15] MEDS: FLUTICASONE/VILANTEROL 200/25MCG 14 PUFFS/INHALER INH SCH (09:17)
[2020-04-15] MEDS: IRBESARTAN 150 MG TAB PO SCH (09:18)
[2020-04-15] MEDS: PANTOprazole 40 MG TAB PO SCH (09:18)
[2020-04-15] MEDS: ATENOLOL 50 MG TABLET PO SCH (09:18)
[2020-04-15] MEDS: CHOLECALCIFEROL 1,000 UNITS 25 MCG TAB PO SCH (09:18)
--- NOTE | 2020-04-15 15:18 | Discharge Summary ---
Date of Service April 15, 2020 Admission HPI Per Admitting Provider Blue Virk is a 70-year-old male from [facility] with COPD and JASMINA who presents to the ER for increased need of oxygen in the setting of COVID-19 pneumonia. He reports having increasing shortness of breath over the last month. He was diagnosed with COVID-19 with nasopharyngeal swab on 04/04 (7 days previously) as a routine test prior to a doctors visit. However he only started having specific COVID-19 symptoms the following day with loss of taste and smell, fever, chills, myalgias, loss of appetite and increasing fatigue. He denies any abdominal pain or diarrhea. He reports most of his symptoms have improved however has been getting increasingly shortness of breath over the last week especially on exertion. Due to increased oxygen requirement today he was sent over by the long-term (70s on room air). He denies any chest pain, palpitations, leg swelling improved since stopping bumex. He reports taking all his regular medication this morning although on direct questioning he does note stopping the Bumex approximately a week ago as he felt this was making his leg swelling worse. He has diagnosed COPD with a 40-pack year smoking history but reports not feeling significant improvement with inhalers with his current illness. No history of MO, CVA, PE or DVT. In the ER CXR concerning for multifocal airspace opacities suspicious for multifocal pneumonia. O2 sats improved to 94% on FiO2 40%. Creatinine concerning at 1.85 however baseline reported over the phone from [facility] 1.51 [03/06/20] - 1.87 [12/06/19]. He was treated with dexamethasone 8mg IV for COVID- 19 pneumonia and referred to medicine for admission and ongoing management of COVID-19 pneumonia. Principal Diagnosis acute respiratory failure with hypoxia covid pneumonia radicular neck pain Discharge Exam The patient appeared stable but chronically ill Vital signs as documented. Lungs diminshed with overall poor air movement Cardiac exam, Rhythm is regular.. No murmurs, rubs or gallops. Abdominal exam reveals normal bowel sounds, soft non tender, no masses Extremities are nonedematous and both pedal pulses are normal. Neurologic exam is alert and oriented, no focal loss of sensation, does have weakness and has issues raising arms above shoulders Skin is without bruises or rashes Psychologically is without concerns for anxiety or depression. Discharge Data Allergies Allergy/AdvReac Type Severity Reaction Status Date / Time DARVOCET Allergy Unknown Unknown. Uncoded 04/11/20 11:14 Consultations 04/11/20 12:48 ED Decision to Admit Stat Ordered Studies 04/11/20 12:19 CT angio chest PE protocol Stat 04/15/20 00:00 MR cervical spine wo con Routine Hospital Course (1) Pneumonia due to COVID-19 virus: stopped dexamethasone and remdesivir after 2 days as no longer hypoxic pt with SOB for one month, but does have COPD. first covid test + 04/04/20. he is improving greatly, he will be past the 10 day infectious quarenteen on 04/15 (2) Acute respiratory failure with hypoxia: Secondary to COVID-19 pneumonia, procalcitonin negtive CT for PE negative with rapid improvement consider onset of covid > 10 days ago or sob and hypoxia were mostly influenced by his copd (3) COPD (chronic obstructive pulmonary disease): Unclear diagnosis of this is no PFTs available. On no LAMA as an outpatient. No acute exacerbation on auscultation or increased sputum production. (4) Cervical disc disorder with radiculopathy: Chronic issue. Potentially being worked up for spinal surgery per patient. oxycodone 5mg Q4H PRN added topical lidoderm, excalate dose recommend parenteral pain control and spine surgeon consult covid status as 10 days from diagnosis will be 04/15 (5) Obstructive sleep apnea: CPAP HS 8 cmH2O at night (6) Benign essential hypertension: Continue atenolol 100 mg p.o. every morning, irbesartan 300 mg p.o. every morning Low normal BP on admission in setting of COVID-19 pneumonia - resume prehospital amlodipine (7) BPH (benign prostatic hyperplasia): Continue tamsulosin 0.8 mg p.o. at bedtime (8) Polyosteoarthritis: Hold NSAIDs due to elevated Cr and unclear if stable. (9) Lower extremity edema: follow with volume restriction and clinical eval for diuretic (10) Peptic ulcer disease: omeprazole (11) Liver cirrhosis: Suspected secondary to treated hepatitis C. Unclear if biopsy diagnosis made or whether follows gastroenterology. Continue atenolol 100 mg p.o. every morning (12) CKD (chronic kidney disease), stage III: Monitor renal function daily. Hold NSAIDs and codeine. Total Time Total Time Spent Total Time Spent (In Minutes): It required greater than 30 minutes to prepare this patient for discharge Discharge Plan Discharge Items [facility] Reason For Visit: ACUTE HYPOXIC RESPIRATORY FAILURE, COVID-19 Discharge Diagnosis: pneumonia secondary to covid cervical radiculopathy Activity: Per Instructions section Non-emergency contact: Primary Care Provider and Surgeon Call non-emergency contact if: you have any medication questions Follow-up/Referrals: Lilia SOSA [Primary Care Provider] - Diet: Regular Addtl Attending Provider Instructions: Coronavirus disease 2019 (COVID-19) is a virus that causes a respiratory illness. It is caused by a coronavirus called 2019 novel coronavirus (2019- nCoV). There are many types of coronavirus. Coronaviruses are a very common cause of bronchitis. They may sometimes cause lung infection(pneumonia). Symptoms can range from mild to severe respiratory illness. These viruses are also foundin some animals. COVID-19 was first found in people in [facility], in late 2018. In 2020, several cases of COVID-19 have been confirmed in the [place] Public health officials are working to find the source. How the virus spreads is not yet fully known. It may be spread through droplets of fluid that a person coughs or sneezes into the air. It may be spread if you touch a surface with virus on it, such as a handle or object, and then touch your mouth. What are the symptoms of COVID-19? Some people have no symptoms or mild symptoms. Symptoms may appear 2 to 14 days after contact with the virus. Symptoms can include: Fever Coughing Trouble breathing What are possible complications from COVID-19? In many cases, this virus can cause infection (pneumonia) in both lungs. In some cases, this can cause . How is COVID-19 diagnosed? Your healthcare provider will ask about your symptoms. He or she will also ask about your recent travel and contact with sick people. Testing for the virus is only done through the CDC. If yourhealthcare provider thinks you may have COVID- 19, he or she will work with your local health department and the CDC on testing. Follow all instructions from your healthcare provider. COVID-19 is diagnosed by: Nasal and throat swab. A cotton-tipped swab is wiped inside your nose or throat. This is done to check for viruses in your nasal mucus. Sputum culture. A small sample of mucus coughed from your lungs (sputum) is collected if you have a cough. It is checked for the virus. How is COVID-19 treated? There is currently no medicine to treat the virus. Treatment is done to help your body while it fights the virus. This is known as supportive care. Supportive care may include: Pain medicine. These include acetaminophen and ibuprofen. They are used to help ease pain and reduce fever. Bed rest. This helps your body fight the illness. For severe illness, you may need to stay in the hospital. Care during severe illness may include: IV (intravenous) fluids.These are given through a vein to help keep your body hydrated. Oxygen. Supplemental oxygen or ventilation with a breathing machine (ventilator) may be given. This is done to keep enough oxygen in your body. Are you at risk for COVID-19? If youve been to a place where people have been sick with this virus, you are at risk for infection. You are at risk if you: Recently traveled to an affected area Had contact with a sick person who recently traveled to this area Had contact with a person who was diagnosed with COVID-19 How can COVID-19 be prevented? There is no vaccine yet. The best prevention is to not have contact with the virus. The CDC advises that people should not travel to areas where there are COVID-19 outbreaks right now for any reason that is not urgent. To help prevent spreading the infection, wash your hands often, or use an alcohol-basedhand tumblers supervisor. If you are in an area with COVID-19: Wash your hands often. Or use an alcohol-based hand tumblers supervisor often. Only touch your eyes, nose, or mouth with clean hands. Dont have contact with people who are sick. Follow local instructions about being in public. For example, you may be told to not use public transport for a period of time. Stay away from markets that have live or animals. Wash your hands after touching any animals. Don't touch animals that may be sick. Dont share eating or drinking tools with sick people. Dont kiss someone who is sick. Clean surfaces often with disinfectant. If you were in an area with COVID-19 in the last 14 days: Call your healthcare provider. He or she can talk with local health staff to see what action may be needed. Follow all instructions from your provider. Take your temperature every morning and evening for at least 14 days. This is to check for fever. Keep a record of the readings. Keep watch for symptoms of the virus. Tell your provider right away if you have symptoms. If you were in an area with COVID-19 and have a fever or other symptoms: Dont panic. Keep in mind that other illnesses can cause similar symptoms. Stay away from work, school, and public places. Limit physical contact with family members. Don't kiss anyone or share eating or drinking utensils. Clean surfaces you touch with disinfectant. This is to help prevent the virus from spreading. Call your healthcare provider. Explain that you have been exposed to COVID-19 and have symptoms. Do this before going to any hospital. Wait for instructions. Keep in mind that healthcare staff may wear protective equipment such as masks, gowns, gloves, and eye protection. You may be put in a separate room. This is to prevent the possible virus from spreading. Tell the healthcare staff about recent travel. This includes local travel on public transport. Staff may need to find other people you have been in contact with. Follow all instructions the healthcare staff give you. If you have been diagnosed with COVID-19 Follow all instructions from your healthcare provider. Dont leave your home, except to get medical care. Call your healthcare providers office before going. They can prepare and give you instructions. This will help prevent the virus from spreading. Dont go to work, school, or public areas. Dont use public transport or taxis. Stay away from other people in your home. Have them wear face masks around you. Dont share household items or food. Wear a face mask if you can. This includes at home or in a medical facility. Cover your face with a tissue when you cough or sneeze. Throw the tissue away. Wash your hands. Wash your hands often. Caregivers should: Follow all instructions from healthcare staff. Wear a face mask and protective clothing as advised. Wash hands often. Keep track of the sick persons symptoms. Clean surfaces, fabrics, and laundry thoroughly. Keep other people away from the sick person. When to call your healthcare provider Call your healthcare provider: If youve recently traveled and have symptoms If you have been diagnosed with COVID-19 and your symptoms are worse To learn more To find out more about COVID-19, visit the CDC website at www.cdc.gov/coronavirus/2019-ncov/index.html. [employer]. [address] [place] [address], [place] [address]. All rights reserved. This information is not intended as a substitute for professional medical care. Always follow your healthcare professional's instructions. This information has been adapted from [employer] Pending Studies at Discharge: No Stand-Alone Forms: My [facility] Skilled Items Patient informed of condition?: No Discharge Level of Care: Other Communicable Disease: Yes Discharge Prognosis: Stable Lines: None Urinary Catheter: No Medications and DC Order Prescriptions: New lidocaine 5 % Adhesive Patch,Medicated 1 patch transdermal QAM Qty: 10 RF: 0 Continued acetaminophen-codeine 300-30 mg Tablet 2 tab PO TID PRN (Reason: Pain) RF: 0 meloxicam 7.5 mg Tablet 7.5 mg PO DAILY PRN (Reason: Inflammation) RF: 0 zinc sulfate 220 mg Tablet 220 mg PO BID RF: 0 tamsulosin 0.4 mg Capsule 0.8 mg PO HS RF: 0 omeprazole 20 mg Capsule,Delayed Release(Dr/Ec) 20 mg PO QAM RF: 0 bumetanide 1 mg Tablet 1 mg PO QAM RF: 0 atenolol 50 mg Tablet 100 mg PO QAM RF: 0 irbesartan 300 mg Tablet 300 mg PO QAM RF: 0 cholecalciferol (vitamin D3) [Vitamin D3] 25 mcg (1,000 unit) Capsule 25 mcg PO DAILY RF: 0 rosuvastatin 20 mg Tablet 20 mg PO HS RF: 0 levalbuterol tartrate [Xopenex HFA] 45 mcg/actuation Hfa Aerosol Inhaler 2 inh INHALATION QID PRN (Reason: Shortness Of Breath) RF: 0 Alvesco 160 mcg/actuation Hfa Aerosol Inhaler 1 puff INHALATION BID RF: 0 Discontinued hydralazine 25 mg Tablet 25 mg PO BID RF: 0 amlodipine 10 mg Tablet 10 mg PO QAM RF: 0 Discharge Orders: Discharge Order (Routine); Ordered 04/15/20 Ordered By: Brennen Conley Admission Data Admit Date/Time: 04/11/20 18:03 Attending Provider: Brennen Conley Admit Provider: Dinesh Laurent Primary Care Provider: Lilia SOSA Other Providers: Pacheco Rincon Other Interventions: Discharge Summary Assessment (RN) Last Done: 04/15/20 12:02 Coding Level of Care Code D/C Day Management >30 mins Diagnoses Pneumonia due to COVID-19 virus U07.1; J12.89 Acute respiratory failure with hypoxia J96.01 COPD (chronic obstructive pulmonary disease) J44.9 Cervical disc disorder with radiculopathy M50.10 Obstructive sleep apnea G47.33 Benign essential hypertension I10 BPH (benign prostatic hyperplasia) N40.0 Polyosteoarthritis M15.9 Lower extremity edema R60.0 Peptic ulcer disease K27.9 Liver cirrhosis K74.60 CKD (chronic kidney disease), stage III N18.30
== END 2020-04-15 14:46 | DRG 177 ==
LOC: ED 10:12 → SUATTDRO 18:03 → 2S 18:03 → 3E 04-12 13:52

== ENCOUNTER 2022-01-28 11:43 | Observation (INO) ==
[2022-01-28] MEDS ORDERED: ADENOSINE IV SOLN 3 MG/ML 2 ML VIAL IV ONE ×2 (11:56→11:58)
[2022-01-28] MEDS ORDERED: ADENOSINE IV SOLN 3 MG/ML 2 ML VIAL IV STA (12:04)
[2022-01-28] MEDS ORDERED: SODIUM CHLORIDE 0.9% 1000ML 500 ML IV ONE (12:04)
--- NOTE | 2022-01-28 12:08 | Emergency Department Note ---
Impression & Plan Paroxysmal SVT (supraventricular tachycardia), JACI (acute kidney injury) ED Provider Note NAME: TRA [id number] SASHA AGE: 72 SEX: M : 1950 ARRIVES VIA: Ambulance INFORMANT: Patient, ED PROVIDER(S): Benny Temple DO CHIEF COMPLAINT: Palpitations HPI: The patient is a 72-year-old male who presented to the emergency department for an evaluation of palpitations. The patient has a history of SVT. He was feeling palpitations this morning at approximately 830 when he awoke. He has not been ill recently. He denies having any nausea vomiting or diarrhea recently. He states has been eating normally. He does have a history of hypertension SVT as well as COPD. He has been compliant with his outpatient medications. Because of his symptoms he went to the [facility]. He was evaluated. Valsalva maneuvers were attempted but they were unsuccessful so the patient was sent to the emergency department via ambulance. They were unable to get an IV and the patient because he has very poor IV access. Multiple attempts at Valsalva were still attempted. The patient states he only feels discomfort but he denies having any significant shortness of breath or swelling in his legs at this time. ROS: See above HPI for pertinent positives & negatives. A total of 10 systems reviewed and were otherwise negative. PAST MEDICAL HISTORY: See Below PAST SURGICAL HISTORY: See Below FAMILY HISTORY: See Below SOCIAL HISTORY: See Below HOME MEDICATIONS: See Below ALLERGIES: See Below VITALS: See Below PHYSICAL EXAMINATION: GENERAL: Patient is awake alert in no acute distress patient is resting comf ortably and showing no signs of anxiety EYES: The conjunctivae are clear. The pupils are round and reactive. EARS, NOSE, MOUTH AND THROAT: The nose is without any evidence of any deformity. Mucous membranes are moist. Tongue is midline. NECK: The neck is nontender and supple. RESPIRATORY: Normal respiratory effort is noted there is no evidence of wheezing rhonchi or rales CARDIOVASCULAR: Tachycardic and regular heart sounds were noted auscultation. There is no definite murmur. GASTROINTESTINAL: The abdomen is soft. Abdomen is nontender. MUSCULOSKELETAL/EXTREMITIES: There is no evidence of gross deformity full range of motion is noted in the hips and shoulders. SKIN: There is no obvious evidence of any rash. There are no petechiae, pallor or cyanosis noted. NEUROLOGIC: Patient is awake alert and oriented x3 MEDICAL DECISION MAKING: The patient is a 72-year-old male who presented to the emergency department for an evaluation of palpitations. The patient has a history of paroxysmal SVT. He was first diagnosed with this a few months ago. He was seen in follow-up by cardiology and a stress test was ordered. The patient was unable to have a stress test because they were unable to obtain IV access. Upon arrival here the patient was unable to have IV access obtained immediately. Modified Valsalva maneuver was attempted twice without resolution of the patient's SVT. Once IV access was obtained the patient was treated with adenosine. This did resolve the patient's SVT. He was found to be in sinus rhythm. The patient went back into SVT again requiring another dose of adenosine. He was treated with IV fluids. I discussed the patient's laboratory and radiographic studies with him. I also [facility] Given the patient's need for stress testing and his return SVT once in the emergency department we felt it would be a good plan for the patient be managed as an inpatient. Triage Nursing notes reviewed. Prior medical records reviewed Vital Signs: reviewed and remarkable for no significant abnormalities Differential diagnosis: Premature contractions, electrolyte abnormality, cardiac dysrhythmia, thyroid dysfunction, pulmonary embolism, infection, gastrointestinal, as well as other pathologies. ER treatment provided: See below Diagnostics interpreted by me: ECG: EKG was obtained in the emergency department. My interpretation is narrow complex tachycardia at 146 bpm. There were no PVCs. Diffuse T wave inversions were noted. This was compared to a tracing from December 03, 2021. SVT has replaced sinus rhythm. EKG from the [facility] was also evaluated. My interpretation is narrow complex tachycardia at 143 bpm. This appears similar to our tracing in the emergency department. A second EKG was obtained after the administration of adenosine. My interpretation is normal sinus rhythm at 74 bpm. There is no ectopy. There was no acute ST segment abnormalities noted. Resolution of the previously noted SVT was appreciated. The AK interval was prolonged this does represent a first- degree AV block. Cardiac Monitoring: An order was placed for continuous cardiac monitoring. The monitor shows a rate of 63 bpm with sinus rhythm. Laboratory studies: As stated above and show below. Imaging studies: See below Consultation(s): I discussed this case with Dr Ramirez who was fellmongering machine operator for [facility] I discussed this case with Nelly who is on-call for the [facility] hospitalist group. ED COURSE: Procedures: Modified Valsalva maneuver was attempted. This was attempted x2 without resolution of the SVT. Critical Care: I have personally spent greater than 35 minutes of critical care time in the direct management of this patient. This includes bedside care, interpretation of diagnostic studies, and testing, discussion with consultants, patient, and family members, and other required patient management activities. This 35 minutes is in excess of all separately billable procedures. Past Med/Surg History Medical History Allergic rhinitis Benign essential hypertension BPH (benign prostatic hyperplasia) Cervical disc disorder with radiculopathy CKD (chronic kidney disease), stage III Constipation COPD (chronic obstructive pulmonary disease) Eczema Gastritis Hemorrhoids Hepatitis C Treated with Harvoni Hiatal hernia Liver cirrhosis Lower extremity edema Neuropathy Obstructive sleep apnea Palpitations Peptic ulcer disease Polyosteoarthritis Social History Smoking Status: Never smoker Tobacco Type: Cigarettes Second Hand Exposure: No; Do You Dip or Chew Tobacco: No; Tobacco Cessation Education Requested by Patient: No Hx Alcohol Use: No Hx Substance Use: No Preferred Language: Syriac Communication Ability: Effective Help Desk Support Required: No Beliefs That Will Affect Care: None Current Living Situation: Other Current Living Situation Comment: Custodial Other Information That Helps Us Care for You: No Feels Safe at Home: Yes Safety Concerns: Feels Safe At This Time Assistive Devices: None Allergies Allergies Allergy/AdvReac Type Severity Reaction Status Date / Time acetaminophen Allergy Unknown ON MED LIST Verified 01/28/22 12:08 [From Darvocet-N] propoxyphene Allergy Unknown ON MED LIST Verified 01/28/22 12:08 [From Darvocet-N] Home Meds Home Medications Medication Instructions Recorded Confirmed acetaminophen 300 mg-codeine 30 mg 2 tab PO TID 04/11/20 01/28/22 tablet bumetanide 1 mg tablet 1 mg PO QAM 04/11/20 01/28/22 omeprazole 20 mg capsule,delayed 20 mg PO DAILY 04/11/20 01/28/22 release rosuvastatin 20 mg tablet 20 mg PO HS 04/11/20 01/28/22 tamsulosin 0.4 mg capsule 0.8 mg PO HS 04/11/20 01/28/22 losartan 100 mg tablet 100 mg PO DAILY 11/04/21 01/28/22 metoprolol tartrate 50 mg tablet 50 mg PO BID 11/04/21 01/28/22 albuterol sulfate 90 mcg/actuation 2 puff inhalation QID PRN 12/03/21 01/28/22 aerosol inhaler Shortness Of Breath fluticasone 500 mcg-salmeterol 50 1 inh inhalation BID 12/03/21 01/28/22 mcg/dose blistr powdr for inhalation (Wix[employer] Inhub) [id number] acid 0.4 1 tab PO DAILY 12/03/21 01/28/22 mg-lycopene 300 mcg-lutein 250 mcg tablet (C[employer] Senior) gabapentin 600 mg tablet 600 mg PO BID 01/28/22 01/28/22 hydralazine 100 mg tablet 100 mg PO TID 01/28/22 01/28/22 sodium bicarbonate 650 mg tablet 650 mg PO BID 01/28/22 01/28/22 Results & Data (ED) Vital Signs Vital Signs - 24 hr 01/28/22 11:53 01/28/22 11:53 01/28/22 11:58 Pulse Rate 148 H Pulse Rate [Apical] 144 H Pulse Rhythm [Apical] Regular Respiratory Rate 15 16 Respiratory Effort / Characteristics Short of Breath Respiratory Depth Blood Pressure 127/86 Blood Pressure [Right Arm] Blood Pressure Mean 99 Blood Pressure Mean [Right Arm] Pulse Oximetry 99 99 97 Oxygen Delivery Method Room Air Room Air Oxygen Flow Rate 0 Sepsis Recent Fever Within 48 Hours No Sepsis New/Unexplained Change in Mental Status No Sepsis Action Taken by Nursing No Action Required 01/28/22 11:59 01/28/22 11:53 01/28/22 12:27 Pulse Rate Pulse Rate [Apical] Pulse Rhythm [Apical] Respiratory Rate Respiratory Effort / Characteristics Respiratory Depth Blood Pressure 127/86 117/68 Blood Pressure [Right Arm] Blood Pressure Mean 99 84 Blood Pressure Mean [Right Arm] Pulse Oximetry 94 Oxygen Delivery Method Room Air Oxygen Flow Rate Sepsis Recent Fever Within 48 Hours Sepsis New/Unexplained Change in Mental Status Sepsis Action Taken by Nursing 01/28/22 12:30 01/28/22 12:34 01/28/22 12:41 Pulse Rate 74 146 H 144 H Pulse Rate [Apical] Pulse Rhythm [Apical] Respiratory Rate 16 16 Respiratory Effort / Characteristics Respiratory Depth Blood Pressure 124/66 115/72 111/84 Blood Pressure [Right Arm] Blood Pressure Mean 85 86 93 Blood Pressure Mean [Right Arm] Pulse Oximetry 94 95 Oxygen Delivery Method Oxygen Flow Rate Sepsis Recent Fever Within 48 Hours Sepsis New/Unexplained Change in Mental Status Sepsis Action Taken by Nursing 01/28/22 13:00 Pulse Rate Pulse Rate [Apical] 72 Pulse Rhythm [Apical] Respiratory Rate 17 Respiratory Effort / Characteristics Non-Labored Spontaneous Respiratory Depth Normal Blood Pressure Blood Pressure [Right Arm] 133/75 Blood Pressure Mean Blood Pressure Mean [Right Arm] 94 Pulse Oximetry 97 Oxygen Delivery Method Oxygen Flow Rate Sepsis Recent Fever Within 48 Hours Sepsis New/Unexplained Change in Mental Status Sepsis Action Taken by Alf Medications Current Medication List: was personally reviewed by me Laboratory Data Attestation: I reviewed the patient's lab results. Result diagrams: 01/28/22 12:04 01/28/22 12:04 Lab Results 01/28/22 01/28/22 01/28/22 Range/Units 12:04 12:04 12:04 WBC 4.24 L (4.8-10.8) K/ul RBC 3.51 L (4.63-6.08) M/uL Hgb 10.9 L (14.0-18.0) g/dl Hct 34.0 L (40.1-51.0) % MCV 96.9 (80.0-100.0) fL MCH 31.1 (25.0-34.0) pg MCHC 32.1 (32.0-36.0) g/dL RDW Std Deviation 43.4 (36.4-46.3) fL RDW Coeff of Hardy 12.3 (11.5-14.5) % Plt Count 202 (130-400) K/uL MPV 11.0 (9.4-12.4) fL Immature Gran % (Auto) 0.5 % Neut % (Auto) 62.7 % Lymph % (Auto) 22.6 % [place] % (Auto) 11.8 % Eos % (Auto) 1.7 % Baso % (Auto) 0.7 % Neut # (Auto) 2.66 (1.4-6.5) K/uL Lymph # (Auto) 0.96 L (1.2-3.4) K/uL [place] # (Auto) 0.50 (0.24-0.82) K/uL Eos # (Auto) 0.07 (0-0.50) K/uL Baso # (Auto) 0.03 (0-0.2) K/uL Immature Gran # (Auto) 0.02 (0.00-0.02) K/uL PT 10.9 (9.0-12.0) Seconds INR 1.0 (0.9-1.1) APTT 22.6 (21.0-31.0) Seconds PTT Ratio 0.8 Sodium 139 (136-145) mmol/L Potassium 4.7 (3.5-5.1) mmol/L Chloride 105 (98-107) mmol/L Carbon Dioxide 28 (21-32) mmol/L Anion Gap 6 (3-11) BUN 25 H (6-23) mg/dl Creatinine 2.11 H (0.6-1.4) mg/dl Est Cr Clr Drug Dosing 62.1 ml/min Est GFR ( Amer) 35.2 ml/min Est GFR (Non-Af Amer) 30.4 ml/min BUN/Creatinine Ratio 11.8 (10-20) Glucose 123 H (70-99(Fasting)) mg/dl Calcium 9.2 (8.5-10.1) mg/dl Magnesium 1.8 (1.7-2.4) mg/dl Total Bilirubin 0.4 (0.2-1.0) mg/dl AST 17 (13-39) U/L ALT 6 L (7-52) U/L Alkaline Phosphatase 64 (34-104) U/L Troponin I High Sens 5.5 (0-20) pg/ml Total Protein 6.8 (6.0-8.3) gm/dl Albumin 3.9 (3.4-5.0) gm/dl Globulin 2.9 (2.5-4.0) gm/dl Albumin/Globulin Ratio 1.3 (0.9-2) Lipase 72 (11-82) U/L TSH (0.300-4.500) uIu/ml 01/28/22 Range/Units 12:04 WBC (4.8-10.8) K/ul RBC (4.63-6.08) M/uL Hgb (14.0-18.0) g/dl Hct (40.1-51.0) % MCV (80.0-100.0) fL MCH (25.0-34.0) pg MCHC (32.0-36.0) g/dL RDW Std Deviation (36.4-46.3) fL RDW Coeff of Hardy (11.5-14.5) % Plt Count (130-400) K/uL MPV (9.4-12.4) fL Immature Gran % (Auto) % Neut % (Auto) % Lymph % (Auto) % [place] % (Auto) % Eos % (Auto) % Baso % (Auto) % Neut # (Auto) (1.4-6.5) K/uL Lymph # (Auto) (1.2-3.4) K/uL [place] # (Auto) (0.24-0.82) K/uL Eos # (Auto) (0-0.50) K/uL Baso # (Auto) (0-0.2) K/uL Immature Gran # (Auto) (0.00-0.02) K/uL PT (9.0-12.0) Seconds INR (0.9-1.1) APTT (21.0-31.0) Seconds PTT Ratio Sodium (136-145) mmol/L Potassium (3.5-5.1) mmol/L Chloride (98-107) mmol/L Carbon Dioxide (21-32) mmol/L Anion Gap (3-11) BUN (6-23) mg/dl Creatinine (0.6-1.4) mg/dl Est Cr Clr Drug Dosing ml/min Est GFR ( Amer) ml/min Est GFR (Non-Af Amer) ml/min BUN/Creatinine Ratio (10-20) Glucose (70-99(Fasting)) mg/dl Calcium (8.5-10.1) mg/dl Magnesium (1.7-2.4) mg/dl Total Bilirubin (0.2-1.0) mg/dl AST (13-39) U/L ALT (7-52) U/L Alkaline Phosphatase (34-104) U/L Troponin I High Sens (0-20) pg/ml Total Protein (6.0-8.3) gm/dl Albumin (3.4-5.0) gm/dl Globulin (2.5-4.0) gm/dl Albumin/Globulin Ratio (0.9-2) Lipase (11-82) U/L TSH 1.000 (0.300-4.500) uIu/ml Administered Medications Acetaminophen/Codeine Phosphate (Acetaminophen W/Codeine #3 1 Tab) 2 tab PO TID MARY Stop: 02/27/22 15:15 Last Admin: 01/28/22 17:20 Dose: 2 tab Documented By: DEANNA Hydralazine HCl (Hydralazine Tab 50 Mg Tab) 100 mg PO TID MARY Stop: 02/27/22 15:15 Last Admin: 01/28/22 17:22 Dose: 100 mg Documented By: CA Lactated Ringer's (Lr) 1,000 mls @ 125 mls/hr IV .Q8H MARY Stop: 01/28/22 23:15 Last Admin: 01/28/22 17:26 Dose: 125 mls/hr Documented By: CA Magnesium Sulfate/Dextrose (Magnesium Sulfate / D5w) 1 gm in 100 mls @ 50 mls/hr IV Q2H MARY Stop: 01/28/22 19:29 Last Admin: 01/28/22 17:26 Dose: 50 mls/hr Documented By: CA Discontinued Medications Adenosine (Adenosine Iv Soln 3 Mg/Ml 2 Ml Vial) Confirm Administered Dose 6 mg IV .STK-MED ONE Stop: 01/28/22 11:57 Last Admin: 01/28/22 12:46 Dose: 6 mg Documented By: MMZ Adenosine (Adenosine Iv Soln 3 Mg/Ml 2 Ml Vial) Confirm Administered Dose 12 mg IV .STK-MED ONE Stop: 01/28/22 11:59 Last Admin: 01/28/22 12:46 Dose: Not Given Documented By: MMZ Adenosine (Adenosine Iv Soln 3 Mg/Ml 2 Ml Vial) 6 mg IV NOW STA Stop: 01/28/22 12:05 Last Admin: 01/28/22 12:14 Dose: 6 mg Documented By: KV Sodium Chloride (Nss 1000ml) 500 mls @ 999 mls/hr IV .Q31M ONE Stop: 01/28/22 12:34 Last Infusion: 01/28/22 12:54 Dose: 0 mls/hr Documented By: Admin: 01/28/22 12:19 Dose: 999 mls/hr Documented By: KV Imaging Data Radiologist's Impression: Chest X-Ray 01/28/22 11:54 XR chest 1V portable HISTORY: 72 years-old Male Chest Pain . Acute chest pain COMPARISON: Chest radiograph 12/03/2021 TECHNIQUE: AP view of the chest FINDINGS: Cardiomediastinal and hilar silhouettes are within normal limits. No pneumothorax, pleural effusion, airspace consolidation or overt pulmonary edema. Bones of the chest appear grossly intact. IMPRESSION: No acute process. ACT 112: Negative or not required by law. The above report was generated using voice recognition software. It may contain grammatical, syntax or spelling errors. Electronically signed by: Ashkan López M.D. 01/28/2022 12:28 PM Discharge Plan Visit Data Chief Complaint: Cardiac Assessment ED Provider: Benny Temple Discharge Problem: Paroxysmal SVT (supraventricular tachycardia), JACI (acute kidney injury) Patient Disposition: Admitted As Inpatient Discharge Instructions Interventions: ED Discharge Assessment Last Done: 01/28/22 14:59
[2022-01-28 12:26] LABS: Basophils # (auto) 0.03 K/uL (0-0.2); Basophils % (auto) 0.7 %; Eosinophils # (auto) 0.07 K/uL (0-0.50); Eosinophils % (auto) 1.7 %; Hemoglobin 10.9 g/dl (14.0-18.0); Immature Granulocytes # (auto) 0.02 K/uL (0.00-0.02); Immature Granulocytes % (auto) 0.5 %; Lymphocytes # (auto) 0.96 K/uL (1.2-3.4); Lymphocytes % (auto) 22.6 %; Mean Corpuscular Hemoglobin 31.1 pg (25.0-34.0); Mean Corpuscular Hgb Conc 32.1 g/dL (32.0-36.0); Mean Corpuscular Volume 96.9 fL (80.0-100.0); Monocytes % (auto) 11.8 %; Neutrophils # (auto) 2.66 K/uL (1.4-6.5); Neutrophils % (auto) 62.7 %; Platelet Count 202 K/uL (130-400); RDW Coefficient of Variation 12.3 % (11.5-14.5); RDW Standard Deviation 43.4 fL (36.4-46.3); Red Blood Count 3.51 M/uL (4.63-6.08); White Blood Count 4.24 K/ul (4.8-10.8)
--- NOTE | 2022-01-28 12:30 | XRay Report ---
XR chest 1V portable HISTORY: 72 years-old Male Chest Pain . Acute chest pain COMPARISON: Chest radiograph 12/03/2021 TECHNIQUE: AP view of the chest FINDINGS: Cardiomediastinal and hilar silhouettes are within normal limits. No pneumothorax, pleural effusion, airspace consolidation or overt pulmonary edema. Bones of the chest appear grossly intact. IMPRESSION: No acute process. ACT 112: Negative or not required by law. The above report was generated using voice recognition software. It may contain grammatical, syntax o r spelling errors. Electronically signed by: Ashkan López M.D. 01/28/2022 12:28 PM
[2022-01-28 12:50] LABS: Albumin Globulin Ratio 1.3 (0.9-2); Albumin Level 3.9 gm/dl (3.4-5.0); BUN Creatinine Ratio 11.8 (10-20); Bilirubin,Total 0.4 mg/dl (0.2-1.0); Calcium 9.2 mg/dl (8.5-10.1); Creatinine Clr Calc Pharmacy 62.1 ml/min; Est GFR (African American) 35.2 ml/min; Est GFR (Non-African American) 30.4 ml/min; Globulin 2.9 gm/dl (2.5-4.0); Magnesium 1.8 mg/dl (1.7-2.4); Partial Thromboplastin Ratio 0.8; Partial Thromboplastin Time 22.6 Seconds (21.0-31.0); Potassium 4.7 mmol/L (3.5-5.1); Prothrombin Time 10.9 Seconds (9.0-12.0); Total Protein 6.8 gm/dl (6.0-8.3)
[2022-01-28 12:55] LABS: Troponin I High Sensitivity 5.5 pg/ml (0-20)
--- NOTE | 2022-01-28 13:07 | History & Physical Report ---
Date of Service January 28, 2022 Assessment & Plan (1) PSVT (paroxysmal supraventricular tachycardia): Plan: - Presented in SVT at 8:30 this morning at the [facility] with HR 150s, s/p vasovagal maneuvers, 6 mg adenosine x2, back to NSR transiently then back to SVT in 140s requiring additioanl 12 mg adenosine x1, now NSR with HR 70s. - History of such in 2012, with intermittent episodes of shortness of breath and palpitations for several months, resolved on own without intervention. - Creatinine slightly elevated, otherwise labs and imaging within normal limits. High sensitive troponin and trop is normal. - Takes metoprolol 50 mg twice daily, received morning dose. Has been compliant with doses. - Consult cardiology for further recommendations regarding medication changes/possible ablation, appreciate their assistance. - Lopressor 5 mg IV as needed for HR >120. - Patient has required stress test to be cleared for C-spine surgery/2 level discectomy and fusion, however has not been able to obtain this yet due to very poor IV access. While he is admitted and IV access has been placed, will order for stress echo to be completed for pre-op clearance. (2) JACI (acute kidney injury): Plan: - Creatinine baseline 1.71.9, today is 2.1. - Received 500 cc NS bolus in ED, will provide additional maintenance IVF and repeat BMP in AM. (3) CKD (chronic kidney disease), stage III: Plan: - Management of JACI as above. - Continue sodium bicarb. - Avoid nephrotoxins, renally dose meds as able. (4) Obstructive sleep apnea: Plan: - CPAP at night. (5) Benign essential hypertension: Plan: - Continue metoprolol, losartan, hydralazine. (6) Dyslipidemia: Plan: - Continue rosuvastatin 20 mg at night. (7) Liver cirrhosis: Plan: - History of hepatitis C, treated. - Coag panel, sodium wnl. - t bili 0.4, AST 17, ALT 6, alk phos 64. (8) Peptic ulcer disease: Plan: - Continue PPI, switch omeprazole to hospital formulary Protonix. (9) Lower extremity edema: Plan: - Takes Bumex 1 mg daily, so lower extremity edema today. - No prior echoes, patient denies history of heart failure. Appears euvolemic. (10) COPD (chronic obstructive pulmonary disease): Plan: - Continue home inhalers or formulary equivalent. (11) BPH (benign prostatic hyperplasia): Plan: - Continue Flomax at night. Plan - Admit to PCU. - SCDs, SC heparin for DVT PPx. - Full code. History of Present Illness Chief Complaint: SOB, palpitations since this AM Primary Care Provider: SHEILA Lilia Virk is a 72-year-old male with past medical history significant for COPD, JASMINA with CPAP nightly, hypertension, dyslipidemia, CKD 3, osteoarthritis, hepatitis C s/p treatment, liver cirrhosis, and episode of paroxysmal SVT in 2012 who presents today with palpitations and SOB. He notes the palpitations started around 830 this morning. He has had conversational dyspnea. He actually presented to the [facility] for routine BP check where he was have a HR in 150s and EKG revealed he was in SVT. Valsalva maneuvers were attempted numerous times at the [facility] and in route to the ambulance without success. They were unable to get IV access in route due to poor IV access. Onc e in our ED, he received 6 mg IV adenosine X2, followed by 12 mg adenosine dose x1. Repeat EKG showed NSR with a heart rate of 74 with some nonspecific T wave abnormalities. There are no ST segment or specific T wave changes to indicate ischemia. Patient has been normotensive and not hypoxic since arrival. He is hemodynamically stable. 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 He denies chest pain with these events or chest pain at present. Labs were significant for a creatinine of 2.11, with baseline estimated to be 1.71.9. Otherwise, there are no acute changes. His hemoglobin is 10.9, which is down from November when it was 12.0, but not far off his baseline over the past 2 years. Glucose mildly elevated at 123. His troponin is 5.5. TSH is pending. No electrolyte abnormalities or evidence of infection. CXR is unremarkable. Allergies Allergy/AdvReac Type Severity Reaction Status Date / Time acetaminophen Allergy Unknown ON MED LIST Verified 01/28/22 12:08 [From Darvocet-N] propoxyphene Allergy Unknown ON MED LIST Verified 01/28/22 12:08 [From Renetta] Home Medications Medication Instructions Recorded Confirmed Type acetaminophen 300 mg-codeine 30 mg 2 tab PO TID 04/11/20 01/28/22 History tablet bumetanide 1 mg tablet 1 mg PO QAM 04/11/20 01/28/22 History omeprazole 20 mg capsule,delayed 20 mg PO DAILY 04/11/20 01/28/22 History release rosuvastatin 20 mg tablet 20 mg PO HS 04/11/20 01/28/22 History tamsulosin 0.4 mg capsule 0.8 mg PO HS 04/11/20 01/28/22 History losartan 100 mg tablet 100 mg PO DAILY 11/04/21 01/28/22 History metoprolol tartrate 50 mg tablet 50 mg PO BID 11/04/21 01/28/22 History albuterol sulfate 90 mcg/actuation 2 puff inhalation QID PRN 12/03/21 01/28/22 History aerosol inhaler Shortness Of Breath fluticasone 500 mcg-salmeterol 50 1 inh inhalation BID 12/03/21 01/28/22 History mcg/dose blistr powdr for inhalation (Wixela Inhub) xebxtiqw-gyi-vatfu acid 0.4 1 tab PO DAILY 12/03/21 01/28/22 History mg-lycopene 300 mcg-lutein 250 mcg tablet (Cerovite Senior) gabapentin 600 mg tablet 600 mg PO BID 01/28/22 01/28/22 History hydralazine 100 mg tablet 100 mg PO TID 01/28/22 01/28/22 History sodium bicarbonate 650 mg tablet 650 mg PO BID 01/28/22 01/28/22 History Past Med/Surg History Medical History Allergic rhinitis Benign essential hypertension BPH (benign prostatic hyperplasia) Cervical disc disorder with radiculopathy CKD (chronic kidney disease), stage III Constipation COPD (chronic obstructive pulmonary disease) Eczema Gastritis Hemorrhoids Hepatitis C Treated with Harvoni Hiatal hernia Liver cirrhosis Lower extremity edema Neuropathy Obstructive sleep apnea Palpitations Peptic ulcer disease Polyosteoarthritis Social History Smoking Status: Never smoker Tobacco Type: Cigarettes Second Hand Exposure: No; Do You Dip or Chew Tobacco: No; Tobacco Cessation Education Requested by Patient: No Hx Alcohol Use: No Hx Substance Use: No Preferred Language: Burundian Communication Ability: Effective Hosiery Looper Required: No Beliefs That Will Affect Care: None Current Living Situation: Other Current Living Situation Comment: Jail Other Information That Helps Us Care for You: No Feels Safe at Home: Yes Safety Concerns: Feels Safe At This Time Assistive Devices: None Review of Systems Review of Systems: Constitutional: No fever/chills, weakness, fatigue, myalgias, anorexia, night sweats Eyes: No diplopia, no worsening or blurred vision ENT: normal hearing, no trouble swallowing Respiratory: SOB upon arrival now resolved. No cough, sputum, dyspnea at rest or on exertion at present Cardiovascular: palpitations upon arrival, now resolved; have been on and off for months. No chest pain, tightness or palpitations at present Abdomen: No pain, nausea, vomiting, diarrhea or constipation : Denies dysuria, hematuria, increased urgency/frequency, urinary retention Musculoskeletal: No joint pain, calf pain, swelling Neurologic: No weakness, numbness/tingling, or balance problems Psychiatric: No anxiety or depression Skin: No rash or itch Physical Exam Physical Exam: General: awake, alert, no apparent distress Head: Normocephalic, atraumatic ENT: PERRL, EOMI, no pharyngeal exudate, mucous membranes moist Chest: Clear to auscultation, on room air, no adventitious breath sounds Cardiac: Regular rate and rhythm, no murmur, no JVD, normal peripheral pulses, good capillary refill Abdominal: NABS x 4 quadrants, soft, nontender to palpation, no rebound, guarding or tenderness Extremities: Normal inspection, no peripheral edema or erythema, calfs nontender to palpation Psych: Normal mood and affect Neuro: AAO x 3, strength intact bilaterally and rated 5/5, no motor deficits, speech is clear, no peripheral sensory deficits Skin: no rash or erythema Results & Data Results & Data ([facility]) Vital Signs (Past 12 Hours) Vital Signs Pulse Pulse Resp BP Pulse Ox O2 Del Method O2 Flow Rate 01/28/22 12:41 144 H 111/84 01/28/22 12:34 146 H 16 115/72 95 01/28/22 12:30 74 16 124/66 94 01/28/22 12:27 117/68 01/28/22 11:53 127/86 01/28/22 11:59 94 Room Air 01/28/22 11:58 97 Room Air 0 01/28/22 11:53 144 H 16 99 01/28/22 11:53 148 H 15 127/86 99 Room Air Laboratory Results Abnormal lab results 01/28/22 01/28/22 Range/Units 12:04 12:04 WBC 4.24 L (4.8-10.8) K/ul RBC 3.51 L (4.63-6.08) M/uL Hgb 10.9 L (14.0-18.0) g/dl Hct 34.0 L (40.1-51.0) % Lymph # (Auto) 0.96 L (1.2-3.4) K/uL BUN 25 H (6-23) mg/dl Creatinine 2.11 H (0.6-1.4) mg/dl Glucose 123 H (70-99(Fasting)) mg/dl ALT 6 L (7-52) U/L Diagnostic Findings Chest X-Ray 01/28/22 11:54 XR chest 1V portable HISTORY: 72 years-old Male Chest Pain . Acute chest pain COMPARISON: Chest radiograph 12/03/2021 TECHNIQUE: AP view of the chest FINDINGS: Cardiomediastinal and hilar silhouettes are within normal limits. No pneumothorax, pleural effusion, airspace consolidation or overt pulmonary edema. Bones of the chest appear grossly intact. IMPRESSION: No acute process. ACT 112: Negative or not required by law. The above report was generated using voice recognition software. It may contain grammatical, syntax or spelling errors. Electronically signed by: Ashkan López M.D. 01/28/2022 12:28 PM Code Status & VTE Plan Code Status Full Code. Supervising Physician Co-Signing Physician Notes Patient seen and examined, chart reviewed, case discussed with Nelly Saenz PA-C and I agree with the assessment and plan as above except as otherwise noted Labs and images reviewed 72-year-old male who presented with SVT but converted to NSR following adenosine treatment, with return SVT and subsequent back to NSR following total grams of adenosine. Patient with intermittent episodes of shortness of breath suspicious for paroxysmal SVT, is on beta-nicholas for which she has been compliant. Hemodynamically stable at time of bedside assessment, rate 60s, blood pressure normal. Lopressor on-call, cardiology consulted. Euvolemic on exam. Agree with management above. PG Care Time/CCT Total # of Minutes Spent Total Time Spent with Patient: Total time spent is greater than 50% in coordination of care (as documented) at patient's floor/unit and/or counseling patient: Coding Level of Care Code 20292 Initial Inpt Care Lvl 3 Diagnoses PSVT (paroxysmal supraventricular tachycardia) I47.1 JACI (acute kidney injury) N17.9 CKD (chronic kidney disease), stage III N18.30 Obstructive sleep apnea G47.33 Benign essential hypertension I10 Dyslipidemia E78.5 Liver cirrhosis K74.60 Peptic ulcer disease K27.9 Lower extremity edema R60.0 COPD (chronic obstructive pulmonary disease) J44.9 BPH (benign prostatic hyperplasia) N40.0
[2022-01-28] MEDS ORDERED: ONDANSETRON INJ 2 MG/ML 2 ML VIAL IV PRN (15:16)
[2022-01-28] MEDS ORDERED: METOPROLOL TARTRATE 1 MG/ML VIAL IV PRN (15:16)
[2022-01-28] MEDS ORDERED: LACTATED RINGER'S 1,000 ML IV SCH (15:16)
[2022-01-28] MEDS ORDERED: ALUMINUM/MAGNESIUM SUSP 30 ML UDC PO PRN (15:16)
[2022-01-28] MEDS ORDERED: POLYETHYLENE (MIRALAX) 17 GM PACK PO PRN (15:16)
[2022-01-28] MEDS ORDERED: INFLUENZA VACCINE HIGH DOSE PF 65+ 0.7 ML SYR IM ONE (15:27)
[2022-01-28] MEDS: ACETAMINOPHEN W/CODEINE #3 1 TAB PO SCH ×2 (17:20→20:56)
[2022-01-28] MEDS: hydrALAZINE TAB 50 MG TAB PO SCH ×2 (17:22→20:58)
[2022-01-28] MEDS: MAGNESIUM SULFATE / D5W 1 GM/100 ML BAG IV SCH ×2 (17:26→19:23)
[2022-01-28] MEDS ORDERED: ROSUVASTATIN CALCIUM 20 MG TAB PO SCH (21:00)
[2022-01-28] MEDS: GABAPENTIN 600 MG TAB PO SCH (21:00)
[2022-01-28] MEDS: SODIUM BICARBONATE 650 MG TAB PO SCH (21:00)
[2022-01-28] MEDS: HEPARIN SOD 5,000 UNIT/0.5 ML VIAL SQ SCH (21:00)
[2022-01-28] MEDS ORDERED: TAMSULOSIN HCL 0.4 MG CAP PO SCH (21:00)
[2022-01-28] MEDS: METOPROLOL TARTRATE 50 MG TAB PO SCH (21:01)
--- NOTE | 2022-01-29 06:03 | Electrocardiogram Report ---
Test Reason : Blood Pressure : / mmHG Vent. Rate : 146 BPM Atrial Rate : 096 BPM P-R Int : 000 ms QRS Dur : 092 ms QT Int : 280 ms P-R-T Axes : 000 072 222 degrees QTc Int : 436 ms Supraventricular tachycardia T wave abnormality, consider inferolateral ischemia Abnormal ECG When compared with ECG of 03-DEC-2021 13:33, Supraventricular tachycardia has replaced Sinus rhythm Vent. rate has increased BY 83 BPM T wave inversion now evident in Inferolateral leads Confirmed by Brooks Ramirez ([id number]) on 01/29/2022 6:03:19 AM Referred By: Confirmed By:Brooks Ramirez
--- NOTE | 2022-01-29 06:07 | Electrocardiogram Report ---
Test Reason : Blood Pressure : / mmHG Vent. Rate : 074 BPM Atrial Rate : 074 BPM P-R Int : 208 ms QRS Dur : 082 ms QT Int : 350 ms P-R-T Axes : 052 067 045 degrees QTc Int : 388 ms Sinus rhythm with 1st degree A-V block When compared with ECG of 28-JAN-2022 11:57, Vent. rate has decreased BY 72 BPM Sinus rhythm has replaced Supraventricular tachycardia T wave inversion no longer evident in Inferolateral leads Confirmed by Brooks Ramirez ([id number]) on 01/29/2022 6:07:02 AM Referred By: Confirmed By:Brooks Ramirez
[2022-01-29 06:59] LABS: BUN Creatinine Ratio 13.2 (10-20); Creatinine Clr Calc Pharmacy 42.5 ml/min; Est GFR (African American) 44.4 ml/min; Est GFR (Non-African American) 38.3 ml/min; Potassium 4.9 mmol/L (3.5-5.1)
[2022-01-29] MEDS ORDERED: LOSARTAN POTASSIUM 50 MG TAB PO SCH (09:00)
[2022-01-29] MEDS ORDERED: BUMETANIDE 1 MG TAB PO SCH (09:00)
[2022-01-29] MEDS ORDERED: PANTOprazole 40 MG TAB PO SCH (09:00)
[2022-01-29] MEDS ORDERED: CEROVITE ADV FORMULA TAB PO SCH (09:00)
[2022-01-29] MEDS ORDERED: FLUTICASONE/VILANTEROL 200/25MCG 14 PUFFS/INHALER INH SCH (09:00)
[2022-01-29] MEDS: METOPROLOL TARTRATE 50 MG TAB PO SCH (09:52)
[2022-01-29] MEDS: SODIUM BICARBONATE 650 MG TAB PO SCH (09:52)
[2022-01-29] MEDS: hydrALAZINE TAB 50 MG TAB PO SCH ×2 (09:53→14:02)
[2022-01-29] MEDS: HEPARIN SOD 5,000 UNIT/0.5 ML VIAL SQ SCH (09:53)
[2022-01-29] MEDS: GABAPENTIN 600 MG TAB PO SCH (09:53)
--- NOTE | 2022-01-29 10:01 | Cardiology Consultation ---
Date of Consultation January 29, 2022 Assessment & Plan (1) Paroxysmal SVT (supraventricular tachycardia): Plan 1. SVT: The patient presented with a regular supraventricular tachycardia. He has a history of the same. 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 It seems yesterday's event was discovered incidentally. The patient may have some subtle symptoms associated with the tachyarrhythmia. However, he has had episodes over the years and this seems to be well tolerated overall. Did go over some symptoms of which to be aware and additional vagal maneuvers that can be tried for termination. I think based on the presumed frequency of the episodes and the difficulty with prompt medical care [facility] he would likely benefit from a treatment that has the potential to fix this permanently. That would be catheter based therapy. I did describe the procedure to the patient today. I think we will make arrangements to perform an ablation on an outpatient basis. Again, the overall episodes appear to be well tolerated. Even yesterday's episode which was extended in nature was well tolerated and only resulted in medical attention because he was otherwise at the [facility]. I do not think he requires a change in his medicines currently. Will try to expedite arrangements for ablation. 2. preoperative evaluation: The patient is anxious to undergo surgery for his back pain. He was advised to undergo a preoperative cardiovascular evaluation to exclude significant coronary disease given his relatively sedentary lifestyle. Apparently there were some difficulties obtaining the examination in the outpatient setting and the patient is eager to have the test performed currently. Will see if this can be facilitated today. History of Present Illness Reason for Consultation: SVT Requesting Physician: Letty Attending Physician: Dinesh Pagan History of Present Illness the patient is a 72-year-old gentleman with a remote history of SVT initially discovered in 2012 who presented to the medical department at the [facility] yesterday for routine health evaluation. Patient states that period ically he will be seen in the [facility] for management of his chronic medical conditions. During yesterday's evaluation he was noted to have an elevated heart rate. Vagal maneuvers were attempted in order to terminate the arrhythmia but these were not successful. Based on the extended duration of the tachy arrhythmia as well as some associated symptoms he was transported to [facility] for evaluation. In the emergency room the patient was administered adenosine with termination of the tachycardia. However, he did have recurrence of the tachycardia while in the emergency room and required another dose of adenosine for termination. Patient states that on occasion he will get a fluttering sensation in the precordium. He does not describe this specifically as chest pain or chest pressure. It is not associated with dizziness or lightheadedness. He generally does not have dyspnea associated with the palpitation but will have dyspnea at times with activity. This activity is very limited due to peripheral neuropathy. He can ambulate. However, walking long distances he will require a wheelchair or other accommodation. He thinks that when he has episodes of tachycardia he becomes quite tired and sleepy. Regionally he attributed this to sleep apnea, but is now more convinced that this is related to his SVT. He states that he commonly can perform vagal maneuvers. Sometimes this terminates the arrhythmia. Other times he will simply go to sleep and it will terminate while he is resting. He cannot recall any episodes of syncope. He believes the episodes may be becoming more frequent recently. Allergies Allergy/AdvReac Type Severity Reaction Status Date / Time acetaminophen Allergy Unknown ON MED LIST Verified 01/28/22 12:08 [From ManageSocialt-N] propoxyphene Allergy Unknown ON MED LIST Verified 01/28/22 12:08 [From ManageSocialt-N] Home Medications Medication Instructions Recorded Confirmed Type acetaminophen 300 mg-codeine 30 mg 2 tab PO TID 04/11/20 01/28/22 History tablet bumetanide 1 mg tablet 1 mg PO QAM 04/11/20 01/28/22 History omeprazole 20 mg capsule,delayed 20 mg PO DAILY 04/11/20 01/28/22 History release rosuvastatin 20 mg tablet 20 mg PO HS 04/11/20 01/28/22 History tamsulosin 0.4 mg capsule 0.8 mg PO HS 04/11/20 01/28/22 History losartan 100 mg tablet 100 mg PO DAILY 11/04/21 01/28/22 History metoprolol tartrate 50 mg tablet 50 mg PO BID 11/04/21 01/28/22 History albuterol sulfate 90 mcg/actuation 2 puff inhalation QID PRN 12/03/21 01/28/22 History aerosol inhaler Shortness Of Breath fluticasone 500 mcg-salmeterol 50 1 inh inhalation BID 12/03/21 01/28/22 History mcg/dose blistr powdr for inhalation (Chandrika Inhub) depkryeo-ipl-juzrz acid 0.4 1 tab PO DAILY 12/03/21 01/28/22 History mg-lycopene 300 mcg-lutein 250 mcg tablet (Cerovite Senior) gabapentin 600 mg tablet 600 mg PO BID 01/28/22 01/28/22 History hydralazine 100 mg tablet 100 mg PO TID 01/28/22 01/28/22 History sodium bicarbonate 650 mg tablet 650 mg PO BID 01/28/22 01/28/22 History Patient History Medical History Allergic rhinitis Benign essential hypertension BPH (benign prostatic hyperplasia) Cervical disc disorder with radiculopathy CKD (chronic kidney disease), stage III Constipation COPD (chronic obstructive pulmonary disease) Eczema Gastritis Hemorrhoids Hepatitis C Treated with Harvoni Hiatal hernia Liver cirrhosis Lower extremity edema Neuropathy Obstructive sleep apnea Palpitations Peptic ulcer disease Polyosteoarthritis Social History Smoking Status: Never smoker Tobacco Type: Cigarettes Second Hand Exposure: No; Do You Dip or Chew Tobacco: No; Tobacco Cessation Education Requested by Patient: No Hx Alcohol Use: No Hx Substance Use: No Preferred Language: Irish Communication Ability: Effective Tool 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 lots of neck and back pain. Neuropathy involving lower extremities. Physical Exam Physical Exam: The patient is alert and oriented. Mood and affect appeared normal. He answered all questions appropriately. Obese HEENT: Pupils are equal and reactive to light and accommodation. Extraocular movements are intact. The sclerae are anicteric. Neuro: Cranial nerves intact Neck: redundant neck tissue.. Lungs: Clear to auscultation bilaterally. He has good air movement without use of accessory muscles. No rales wheezes or rhonchi. Cardiac: Heart demonstrates a regular rate and rhythm. Normal S1 and S2. No murmurs on examination. Pulses: The patient has palpable radial pulses bilaterally that are equal in intensity Extremities: There was no evidence of hypoperfusion. There is no cyanosis or clubbing. There is no edema. Skin: I did not appreciate any rashes on examination today. Results & Data ([facility]) Vital Signs (Past 12 Hours) Vital Signs Temp Pulse Pulse Resp BP Pulse Ox O2 Del Method 01/29/22 08:25 54 L 01/29/22 08:25 Room Air 01/29/22 07:06 36.6 C 57 L 16 139/75 94 Room Air 01/29/22 03:15 60 12 92 01/29/22 02:39 36.2 C L 59 L 17 117/71 93 01/28/22 23:18 60 01/28/22 22:38 35.9 C L 58 L 18 112/63 94 01/28/22 22:31 60 17 91 O2 Flow Rate FiO2 01/29/22 08:25 01/29/22 08:25 01/29/22 07:06 01/29/22 03:15 0 21 01/29/22 02:39 01/28/22 23:18 01/28/22 22:38 01/28/22 22:31 0 21 Laboratory Results Abnormal Lab Results 01/28/22 01/29/22 13:26 05:36 Sodium 136 Potassium 4.9 Chloride 105 Carbon Dioxide 27 Anion Gap 4 BUN 23 Creatinine 1.74 H D Est Cr Clr Drug Dosing 42.5 Est GFR ( Amer) 44.4 Est GFR (Non-Af Amer) 38.3 BUN/Creatinine Ratio 13.2 Glucose 123 H Calcium 9.0 Magnesium 2.0 SARS-CoV-2, RNA, NAAT NEGATIVE PG Care Time/CCT Total # of Minutes Spent Total Time Spent with Patient: Total time spent is greater than 50% in coordination of care (as documented) at patient's floor/unit and/or counseling patient: Coding Level of Care Code 87499 Office/OBS Consult Lvl 4 Diagnoses Paroxysmal SVT (supraventricular tachycardia) I47.1
[2022-01-29] MEDS: ACETAMINOPHEN W/CODEINE #3 1 TAB PO SCH ×2 (10:09→14:00)
[2022-01-29] MEDS ORDERED: ATROPINE SULFATE 0.1 MG/ML 10ML SYR IV ONE (14:09)
[2022-01-29] MEDS ORDERED: METOPROLOL TARTRATE 1 MG/ML VIAL IV ONE (14:09)
[2022-01-29] MEDS ORDERED: NITROGLYCERIN SL 0.4 MG/TAB TAB ONE (14:09)
[2022-01-29] MEDS ORDERED: DOBUTamine HCL 12.5 MG/ML 20 ML VIAL IV ONE (14:09)
[2022-01-29] MEDS ORDERED: ADENOSINE IV SOLN 3 MG/ML 2 ML VIAL IV ONE (14:10)
[2022-01-29] MEDS ORDERED: PERFLUTREN LIPID MICROSPHERE (DEFINITY) IV ONE (15:31)
--- NOTE | 2022-01-29 15:59 | XCELERA ---
[id number]
[2022-01-29] MEDS ORDERED: GABAPENTIN 400 MG CAP PO ONE (16:00)
--- NOTE | 2022-01-29 17:20 | Discharge Summary ---
Date of Service date of admission - January 28, 2022 date of discharge - January 29, 2022 Admission HPI Per Admitting Provider Blue Virk is a 72-year-old male with past medical history significant for COPD, JASMINA with CPAP nightly, hypertension, dyslipidemia, CKD 3, osteoarthritis, hepatitis C s/p treatment, liver cirrhosis, and episode of paroxysmal SVT in 2012 who presents today with palpitations and SOB. He notes the palpitations started around 830 this morning. He has had conversational dyspnea. He actually presented to the [facility] for routine BP check where he was have a HR in 150s and EKG revealed he was in SVT. Valsalva maneuvers were attempted numerous times at the senior living and in route to the ambulance without success. They were unable to get IV access in route due to poor IV access. Once in our ED, he received 6 mg IV adenosine X2, followed by 12 mg adenosine dose x1. Repeat EKG showed NSR with a heart rate of 74 with some nonspecific T wave abnormalities. There are no ST segment or specific T wave changes to indicate ischemia. Patient has been normotensive and not hypoxic since arrival. He is hemodynamically stable. He has noticed palpitations and SOB on and off for several months but typically tries to exercise or sleep through it, has not mentioned this to anyone at [facility] or sales and service consultant. He denies chest pain with these events or chest pain at present. Labs were significant for a creatinine of 2.11, with baseline estimated to be 1 .71.9. Otherwise, there are no acute changes. His hemoglobin is 10.9, which is down from November when it was 12.0, but not far off his baseline over the past 2 years. Glucose mildly elevated at 123. His troponin is 5.5. TSH is pending. No electrolyte abnormalities or evidence of infection. CXR is unremarkable. Principal Diagnosis SVT Discharge Exam gen - obese, NAD neck - no JVD heart - RRR, s1 s2, no murmur lungs - CTA b/l abd - soft NT ND BS+ ext - no edema, pulses 2+ b/l psych - a/o x 3 Discharge Data Allergies Allergy/AdvReac Type Severity Reaction Status Date / Time acetaminophen Allergy Unknown ON MED LIST Verified 01/28/22 12:08 [From Darvocet-N] propoxyphene Allergy Unknown ON MED LIST Verified 01/28/22 12:08 [From Darvocet-Mercedes] Consultations Cardiology - Jone King MD Procedures Performed Dobutamine stress echocardiogram - * negative dobutamine stress echo at 87% of maximum predicted heart rate * no dobutamine induced chest pain * no EKG changes * echocardiogram with normal LV systolic function without wall motion abnormalities Hospital Course (1) PSVT (paroxysmal supraventricular tachycardia): Presented with SVT at 8:30am at the [facility] with HR 150s, s/p vagal maneuvers without any success. Due to lack of IV access he was transported to [facility]. Upon arrival in our ER IV access was obtained and 6 mg adenosine x 2 was administered. Reverted back to NSR transiently then back to SVT in 140s r equiring additional 12mg adenosine x 1, now NSR with HR 70s. Once back in NSR he was admitted for observation and seen by [facility] Card[facility]. Dr Jone King agreed that his episodes were classic SVT. Dr King recommended ongoing use of metoprolol 50mg BID along with an ablation procedure as an outpatient in the near-future. Of note - the patient was scheduled to have cervical spine surgery/2-level discectomy & fusion at [facility] sometime in the next few months. In preparation for such a dobutamine stress echocardiogram was obtained during this brief admission and this was NEGATIVE for ischemia. (2) JACI (acute kidney injury): Creatinine baseline 1.71.9 Peak Cr was 2.1 Cr on day of discharge was 1.7 (3) CKD (chronic kidney disease), stage III: baseline CrCl low 40s c/w stage 3ab CKD (4) Obstructive sleep apnea: Cont CPAP at night. (5) Benign essential hypertension: Continue metoprolol, losartan, hydralazine as previous.\\ (6) Dyslipidemia: Continue rosuvastatin (7) Liver cirrhosis: History of hepatitis C, treated. LFTs were wnl while here. INR was normal at 1. (8) Peptic ulcer disease: Continue PPI (9) COPD (chronic obstructive pulmonary disease): Continue usual chronic inhalers (10) BPH (benign prostatic hyperplasia): Continue Flomax Total Time Total Time Spent Total Time Spent (In Minutes): 25 Discharge Plan Discharge Items [facility] Disposition[facility] Reason For Visit: SVT Discharge Diagnosis: 1. Supraventricular Tachycardia ("SVT") - outpatient ablation procedure is being planned in the future 2. NEGATIVE dobutamine stress echocardiogram (normal stress test) 3. Acute kidney injury - resolved 4. CKD stage 3 - discharge creatinine 1.7 5. Cervical spine DJD 6. JASMINA on CPAP 7. COPD Activity: Resume your previous activity Non-emergency contact: Primary Care Provider and Scheduling Assistant Call non-emergency contact if: you have any medication questions Follow-up/Referrals: Jone King MD [Physician] - (Dr King's office to arrange outpatient SVT ablation procedure ) Lilia SOSA [Primary Care Provider] - Diet: Heart Healthy Addtl Attending Provider Instructions: Mr Virk was hospitalized for SVT. He was seen by [facility]iology, Dr Jone King. Dr King concurred that the rapid heart rhythm is SVT. Dr King plans to perform an ablation procedure to treat the SVT. No medication changes were made during this hospital stay. Mr Virk also underwent a dobutamine stress echocardiogram. This was done in preparation for upcoming neck surgery. The stress test was NORMAL/NEGATIVE. Ejection fraction was NORMAL. Pending Studies at Discharge: No Stand-Alone Forms: My [facility] Skilled Items Patient informed of condition?: Yes Discharge Level of Care: Other Communicable Disease: No Discharge Prognosis: Stable Lines: None Urinary Catheter: No Medications and DC Order Prescriptions: Continued losartan 100 mg tablet 100 mg PO DAILY metoprolol tartrate 50 mg tablet 50 mg PO BID acetaminophen-codeine 300-30 mg Tablet 2 tab PO TID tamsulosin 0.4 mg Capsule 0.8 mg PO HS Rx Instructions: take 2 capsules at bedtime omeprazole 20 mg Capsule,Delayed Release(Dr/Ec) 20 mg PO DAILY bumetanide 1 mg Tablet 1 mg PO QAM rosuvastatin 20 mg Tablet 20 mg PO HS albuterol sulfate 90 mcg/actuation Hfa Aerosol Inhaler 2 puff INHALATION QID PRN (Reason: Shortness Of Breath) Cerovite Senior 0.4 mg-300 mcg- 250 mcg Tablet 1 tab PO DAILY fluticasone propion-salmeterol [Wixela Inhub] 500-50 mcg/dose Blister With Device 1 inh INHALATION BID gabapentin 600 mg Tablet 600 mg PO BID sodium bicarbonate 650 mg Tablet 650 mg PO BID hydralazine 100 mg Tablet 100 mg PO TID Discharge Orders: Discharge Order (Routine); Ordered 01/29/22 Ordered By: Dinesh Neal/Other Patient Handouts: Supraventricular Tachycardia Admission Data Admit Date/Time: 01/28/22 13:11 Attending Provider: Dinesh Pagan Admit Provider: Nelly Saenz Primary Care Provider: Lilia SOSA Other Providers: Alli Edwards ; Brooks Ramirez Other Interventions: Discharge Summary Assessment (RN) Last Done: 01/29/22 19:47 Coding Level of Care Code D/C DAY MANAGEMENT <30 MINS Diagnoses PSVT (paroxysmal supraventricular tachycardia) I47.1 JACI (acute kidney injury) N17.9 CKD (chronic kidney disease), stage III N18.30 Obstructive sleep apnea G47.33 Benign essential hypertension I10 Dyslipidemia E78.5 Liver cirrhosis K74.60 Peptic ulcer disease K27.9 COPD (chronic obstructive pulmonary disease) J44.9 BPH (benign prostatic hyperplasia) N40.0
== END 2022-01-29 20:06 | DRG 309 ==
LOC: ED 11:43 → 2E 13:11 → SUATTDRO 13:11 → INTOOBSV 13:11 → 2E 14:59